=== PATIENT | female | born 1950 | race Caucasian/White ===

== ENCOUNTER 2020-04-13 11:49 | Outpatient (CLI) | payer MEDICARE, SELFPAY ==
--- NOTE | ~2020-04-13 | XR_ITS ---
EXAMINATION: XR knee RT 3V DATE: 04/13/2020 12:21 INDICATION: Right knee pain. TECHNIQUE: 3 views of right knee were obtained. COMPARISON: None. FINDINGS: Bone alignment is normal. No fracture. There is mild tricompartmental osteoarthritis. There is a small knee joint effusion. IMPRESSION: 1. Mild right knee osteoarthritis. 2. Small right knee joint effusion. Reviewed, dictated and finalized at location A.
== END 2020-04-13 11:50 | disposition home or self-care (01) ==
LOC: CHSIMG 11:54
PROVIDERS: PCP Family Medicine; Visit Provider Family Medicine
DX: M25.561 Pain in right knee (principal)
CPT/HCPCS: 73562

== ENCOUNTER 2020-11-15 10:53 | Outpatient (CLI) | payer MEDICARE, SELFPAY ==
[2020-11-15 12:03] LABS: SARS-CoV-2 Ag Positive (Negative)
== END 2020-11-15 10:54 | disposition home or self-care (01) ==
LOC: CHSLAB 10:55
PROVIDERS: PCP Family Medicine; Visit Provider Family Medicine
DX: U07.1 COVID-19 (principal)
CPT/HCPCS: 87426; C9803

== ENCOUNTER 2021-10-13 14:10 | Outpatient (CLI) | payer MEDICARE, SELFPAY ==
--- NOTE | 2021-10-13 14:50 | ECHO_ITS ---
Patient Info Name: Kelsie Chaidez Age: 71 years : 1950 Gender: Female Ht: 66 in Wt: 180 lbs BSA: 1.97 m2 HR: 73 bpm BP: 119 / 77 mmHg Exam Date: 10/13/2021 3:35 PM Exam Location: [facility] Patient Status: Outpatient Admit Date: 10/13/2021 Staff Ordering Physician: Patrick Gusman MD Study Lead: Anu Vale Attending Provider: Patrick Gusman MD Referring Physician: Uzma PAUL; Exam Type: CA echo doppler color flow Study Info Indications R01.1 - Cardiac murmur, unspecified Complete two-dimensional, color flow and Doppler transthoracic echocardiogram is performed. Summary 1. Complete two-dimensional, color flow and Doppler transthoracic echocardiogram is performed. 2. Left ventricular chamber dimension is normal. 3. Left ventricular systolic function is normal, estimated at 60-65%. 4. The left ventricular diastolic function is grade I diastolic dysfunction. 5. E/e' 5 is not elevated. 6. There is mild aortic valve sclerosis. 7. There is trace aortic valve regurgitation. Left Ventricle E/e' 5 is not elevated. Left ventricular chamber dimension is normal. Left ventricular systolic function is normal, estimated at 60-65%. The left ventricular diastolic function is grade I diastolic dysfunction. Right Ventricle Right ventricular systolic function is normal and with normal TAPSE 1.9 cm. Right ventricular chamber dimension is normal. Left Atria Left atrial chamber dimension is normal. Right Atria Right atrial chamber dimension is normal. Aortic Valve The aortic valve is trileaflet. There is mild aortic valve sclerosis. There is no aortic valve stenosis. There is trace aortic valve regurgitation. Pulmonic Valve There is no pulmonic regurgitation. Mitral Valve There is no mitral valve stenosis. There is no mitral valve regurgitation. Tricuspid Valve There is no tricuspid valve regurgitation. Pericardium/Pleural There is no pericardial effusion. Inferior Vena Cava Normal inferior vena cava with >50% collapse upon inspiration consistent with normal right atrial pressure, 5 mmHg. Aorta The aortic root size at the sinus of Valsalva is normal. Left Ventricular Outflow Tract Name Value Normal LVOT 2D LVOT Diameter 2.0 cm LVOT Doppler LVOT Peak Velocity 75 cm/s LVOT Peak Gradient 2 mmHg LVOT Mean Gradient 1 mmHg LVOT VTI 17 cm LVOT VTI/AV VTI Ratio 0.6 LVOT Stroke Volume 52 ml Mitral Valve Name Value Normal MV Doppler MV Decel [place] 232 cm/s2 MV PHT 64 ms MV Area (PHT) 3.5 cm2 4.0-5.0 MV Diastolic Function
== END 2021-10-13 14:11 | disposition home or self-care (01) ==
LOC: CHSIMG 14:13
PROVIDERS: PCP Family Medicine; Visit Provider Internal Medicine Cardiovascular Disease
DX: R42 Dizziness and giddiness (principal); R01.1 Cardiac murmur, unspecified
CPT/HCPCS: 93306

== ENCOUNTER 2022-05-30 12:36 | Outpatient (CLI) | payer MEDICARE, SELFPAY ==
[2022-05-30 13:41] LABS: Influenza A QL RT-PCR Negative (Negative); Influenza B QL RT-PCR Negative (Negative); SARS-CoV-2 RNA PCR Positive (Negative)
== END 2022-05-30 12:37 | disposition home or self-care (01) ==
LOC: CHSLAB 12:44
PROVIDERS: PCP Family Medicine; Visit Provider Family Medicine
DX: U07.1 COVID-19 (principal)
CPT/HCPCS: 87502; C9803; U0003; U0005

== ENCOUNTER 2023-10-09 01:36 | Day surgery (SDC) | payer MEDICARE, SELFPAY ==
[2023-09-25 12:00] VITALS: BMI 26.9
--- NOTE | 2023-10-07 10:56 | SUR.PREOP ---
Patient called regarding upcoming procedure. Reviewed preop instructions, appointment times, and procedure prep.
[2023-10-09 12:39] VITALS: BP 130/80; PULSE 113; RESP 16; TEMP 36.1; O2SAT 99
[2023-10-09] MEDS: LACTATED RINGERS 1,000 ML 150 ML IV CONT (12:46)
--- NOTE | 2023-10-09 12:54 | WPDANESEPPF ---
Anes - Initial Pre Proc Eval Procedure: Operation Date: 10/09/23 14:00 Proposed Procedures p Esophagogastroduodenoscopy & Colonoscopy - Vinicio King MD Date/Time: 10/09/23 12:54 Surgeon: Vinicio King MD Pre Op Diagnosis: other fecal abnormalities, anemia unspecified Patient Data Age: 73 Gender: F Height: 1.73 m Weight: 77 kg Last Vital Signs Temp 97.0 F L 10/09/23 12:39 Pulse 113 H 10/09/23 12:39 Resp 16 10/09/23 12:39 BP 130/80 10/09/23 12:39 Pulse Ox 99 10/09/23 12:39 O2 Del Method Room Air 10/09/23 12:39 Allergies Allergy/AdvReac Type Severity Reaction Status Date / Time Penicillins Allergy Unknown Unknown Verified 10/09/23 12:38 Home Medications Medication Instructions Recorded Confirmed Type amitriptyline 25 mg tablet 25 mg PO HS 09/25/23 10/09/23 History aspirin 81 mg capsule 81 mg PO DAILY 09/25/23 10/09/23 History docusate sodium 100 mg capsule 100 mg PO HS 09/25/23 10/09/23 History (Stool Softener) ramipril 2.5 mg capsule 2.5 mg PO DAILY 09/25/23 10/09/23 History rosuvastatin 40 mg tablet 40 mg PO DAILY 09/25/23 10/09/23 History venlafaxine 37.5 mg 37.5 mg PO DAILY 09/25/23 10/09/23 History capsule,extended release 24 hr vitamin B complex (B 1 tablet PO DAILY 09/25/23 10/09/23 History Complex-Vitamin B12 tablet) Patient hx anesthesia problems: none Family hx anesthesia problems: none Results Review: All pre-operative results and documents have been reviewed as part of the pre-operative evaluation. [facility] Family History Family History (Updated 07/02/19 @ 14:00 by DOCTOR UNKNOWN) Father Family history of malignant neoplasm of esophagus Social History Social History Smoking status: Never smoker Second hand tobacco smoke exposure: No Alcohol intake: current Alcohol use details: occasional wine Substance use: never Substance use type: does not use Living arrangements: with family Spiritual care concerns: No Anes - Eval Final PreProcedure Day of Procedure 10/09/23 12:54 Patient weight: normal Heart: regular rate and rhythm Lungs: clear to auscultation Airway: Mallampati scale class III Neurological: alert and oriented Last oral intake: >/= 8 hours ASA classification: III Emergent: no Anesthetic plan: proceed Anesthesia type and monitoring: general GIVS and standard monitoring Results Review: All pre-operative results and documents have been reviewed as part of the pre-operative evaluation. Informed Consent: The patient's anesthetic plan and its attendant risks and benefits were discussed with the patient/family/POA. Questions were solicited and answers provided to the satisfaction of the patient/family/POA.
--- NOTE | 2023-10-09 13:03 | PM.HPGS ---
History of Present Illness History of Present Illness Consent: Risks, benefits, and alternatives have been discussed and questions answered. Patient agrees to proceed with procedure. Chief complaint: other fecal abnormalities, anemia unspecified Narrative: Kelsie Chaidez is a 73 year old female with fatigue and recent blood work showed anemia, hgb ~ 9, denies overt gib, last colonoscopy 2006, never had egd Review of Systems Constitutional: Constitutional: Denies headache(s) and Denies weakness Eyes: Eyes: Denies blurry vision ENT: Reports Normal hearing present, Denies headache(s) and Denies neck pain Cardiovascular: Cardiovascular: Denies chest pain and Denies dyspnea Respiratory: Respiratory: Denies dyspnea Gastrointestinal: Gastrointestinal: Reports no additional gastrointestinal complaints Genitourinary: Genitourinary: Denies dysuria Musculoskeletal: Musculoskeletal: Denies neck pain Integumentary/Breasts: Skin/Breast: Denies dry skin Neurologic: Reports Normal hearing present, Denies headache(s) and Denies weakness Psychiatric: Psychiatric: Denies anxiety Endocrine: Endocrine: Denies change in body appearance Hematologic/Lymphatic: Hematologic/Lymphatic: Denies easy bleeding Allergic/Immunologic: Allergic/Immunologic: Denies urticaria PMFSH Past Medical History Medical History (Updated 10/09/23 @ 13:04 by Vinicio King MD) Anemia Family History Family History (Updated 07/02/19 @ 14:00 by DOCTOR UNKNOWN) Father Family history of malignant neoplasm of esophagus Social History Social History Smoking status: Never smoker Second hand tobacco smoke exposure: No Alcohol intake: current Alcohol use details: occasional wine Substance use: never Substance use type: does not use Living arrangements: with family Spiritual care concerns: No Meds Home Medications and Allergies Home Medications Medication Instructions Recorded Confirmed Type amitriptyline 25 mg tablet 25 mg PO HS 09/25/23 10/09/23 History aspirin 81 mg capsule 81 mg PO DAILY 09/25/23 10/09/23 History docusate sodium 100 mg capsule 100 mg PO HS 09/25/23 10/09/23 History (Stool Softener) ramipril 2.5 mg capsule 2.5 mg PO DAILY 09/25/23 10/09/23 History rosuvastatin 40 mg tablet 40 mg PO DAILY 09/25/23 10/09/23 History venlafaxine 37.5 mg 37.5 mg PO DAILY 09/25/23 10/09/23 History capsule,extended release 24 hr vitamin B complex (B 1 tablet PO DAILY 09/25/23 10/09/23 History Complex-Vitamin B12 tablet) Allergies Allergy/AdvReac Type Severity Reaction Status Date / Time Penicillins Allergy Unknown Unknown Verified 10/09/23 12:38 Vital Signs Vital Signs - 24 hr 10/09/23 12:39 Temperature 97.0 F L Pulse Rate 113 H Respiratory Rate 16 Blood Pressure 130/80 Pulse Oximetry 99 Oxygen Delivery Room Air Exam Const: General: comfortable and no acute distress HENMT: Face/Nose/Sinus: Normal nares present Eyes: General: appearance normal, both eyes and all related structures Neck: Neck: no JVD Resp: Auscultation: clear to auscultation bilaterally Cardio: Rate: regular rate Rhythm: regular rhythm GI: Inspection: non-distended GI Palp: Yes Soft to palpation Skin: General skin exam: normal color Neuro: General: gait normal Speech: normal speech Extrem: General: normal to inspection Psych: Mental Status: mental status grossly normal Assessment and Plan Assessment and plan (1) Anemia: Code(s): D64.9 - Anemia, unspecified Status: Acute Assessment and Plan: egd and colonoscopy to assess if gi blood loss
[2023-10-09] MEDS: BENZOCAINE (*SP) 60 ML SPRAY CAN (HURRICAINE) 1 SPRAY MUCOUS MEM (13:10)
--- NOTE | 2023-10-09 13:12 | SUR.OPER ---
EGD: START-1310 END-1315, COLONOSCOPY: START-1320, END- 1333
[2023-10-09 13:38] VITALS: BP 118/77; PULSE 85; RESP 16; O2SAT 97
[2023-10-09 13:48] VITALS: BP 122/74; PULSE 84; RESP 17; O2SAT 97
== END 2023-10-09 14:24 | disposition home or self-care (01) ==
PROVIDERS: PCP Family Medicine; Visit Provider Internal Medicine Gastroenterology
PROC: 0DJ08ZZ Inspection of Upper Intestinal Tract, Via Natural or Artificial Opening Endoscopic (ICD-10-PCS; CPT 43235; principal; 2023-10-09 14:00)
DX: R19.5 Other fecal abnormalities (principal); C18.2 Malignant neoplasm of ascending colon; K57.30 Diverticulosis of large intestine without perforation or abscess without bleeding; K64.8 Other hemorrhoids; K44.9 Diaphragmatic hernia without obstruction or gangrene; D64.9 Anemia, unspecified; Z79.82 Long term (current) use of aspirin; Z80.0 Family history of malignant neoplasm of digestive organs
CPT/HCPCS: 43239; 45331; 45335; 88305; J2704; J7120

== ENCOUNTER 2023-10-17 09:24 | Outpatient (CLI) | payer MEDICARE, SELFPAY ==
--- NOTE | ~2023-10-17 | CT_ITS ---
CT of the Abdomen and Pelvis: Indication: Other specified diseases of intestines Technique: 2.5 mm axial scans were obtained through the abdomen and pelvis following intravenous adm inistration of 100 cc of Omnipaque 350. Dose reduction technique was used on this scan by utilizing a utomated exposure control and iterative reconstruction technique. The dose-length product (DLP) was 6 96.41 mGy-cm. Findings: Scans through the lung bases are unremarkable. The liver, spleen, pancreas, gallbladder, adrenals and kidneys are within normal limits. No evidence of aortic aneurysm. No lymphadenopathy. There is an ascending colonic mass measuring approximately 7.8 x 5.5 cm (axial image 81 for example). No forrest bowel obstruction evident. There are small, shotty pericolonic lymph nodes, nonspecific. Images through the pelvis were performed. Urinary bladder unremarkable. No adnexal mass seen. No asci anish. No ascites. Impression: Ascending colonic mass, as detailed above, most consistent with colonic adenocarcinoma. Small, shotty pericolonic lymph nodes in this region are indeterminate for early local ar metastat ic disease. No other evidence for metastatic disease. Reviewed, dictated and finalized at location . STANT DISTRICT ATTORNEY Impression: Ascending colonic mass, as detailed above, most consistent with colonic adenoca rcinoma. Small, shotty pericolonic lymph nodes in this region are indeterminate for susi y local ar metastatic disease. No other evidence for metastatic disease.
[2023-10-17 08:50] LABS: Estimated Glomerular Filt Rate > 60
[2023-10-17 10:58] LABS: Hematocrit 28.8 % (37.0-47.0); Hemoglobin 8.4 g/dL (12.0-15.0); Mean Corpuscular HGB Conc 29.2 g/dl (32-36); Mean Corpuscular Hemoglobin 24.1 pg (26-34); Mean Corpuscular Volume 82.5 fl (80-100); Mean Platelet Volume 9.9 fl (7.4-10.4); Platelet Count Result 413 k/mm3 (150-375); Red Blood Count 3.49 M/mm3 (4.2-5.4); Red Cell Distribution Width 17.9 % (11.5-14.5)
[2023-10-17 11:34] LABS: Alanine Aminotransferase 11 U/L (6-35); Albumin Level 3.8 g/dL (3.5-5.1); Alkaline Phosphatase 83 U/L (38-126); Anion Gap 10 mmol/L (8-16); Aspartate Amino Transferase 22 U/L (14-36); Bilirubin,Total 0.3 mg/dL (0.2-1.3); Blood Urea Nitrogen 12 mg/dL (7-17); Carbon Dioxide 24 mmol/L (22-30); Chloride 103 mmol/L (98-107); Estimated Glomerular Filt Rate > 60; Glucose 101 mg/dL (65-110); Potassium 3.9 mmol/L (3.4-5.0); Sodium 137 mmol/L (137-145)
[2023-10-17 11:59] LABS: Carcinoembryonic Antigen 9.5 ng/mL (0.0-3.0)
== END 2023-10-17 09:25 | disposition home or self-care (01) ==
PROVIDERS: PCP Family Medicine; Visit Provider Internal Medicine Gastroenterology
DX: K63.89 Other specified diseases of intestine (principal); D64.9 Anemia, unspecified; C18.9 Malignant neoplasm of colon, unspecified
CPT/HCPCS: 74177; 80053; 82378; 85027; Q9967

== ENCOUNTER 2023-11-25 13:08 | Emergency (ER) | payer MEDICARE, SELFPAY ==
[2023-11-25] VITALS (38 sets, daily range): BP systolic 113–137; BP diastolic 66–105; PULSE 70–100; RESP 13–20; TEMP 37; O2SAT 94–99
--- NOTE | ~2023-11-25 | XR_ITS ---
XR chest 1V portable DATE: 11/25/2023 13:52 INDICATION: Chest pain radiating to right arm TECHNIQUE: Portable upright AP chest on 11/25/2023 at 1355 hours COMPARISON: 06/06/2018 AP chest FINDINGS: Heart size is normal. Probable coronary stent. Mild aortic unfolding. No hilar or mediastin al enlargement. Mild bilateral apical capping. No pulmonary infiltrate or consolidation, pleural effusion or pulmonar y vascular congestion or pneumothorax is detected. IMPRESSION: No active cardiopulmonary disease Reviewed, dictated and finalized at location B. Y EQUIPMENT OPERATOR
--- NOTE | ~2023-11-25 | CT_ITS ---
EXAMINATION: CTA chest abdomen pelvis DATE: 11/25/2023 15:31 INDICATION: Right shoulder and chest pain. Exploratory laparotomy and removal of colon tumor one week ago TECHNIQUE: Computed tomography angiography (CTA) of the chest, abdomen and pelvis was performed with 100 mL Omnipaque-350 intravenous contrast timed to evaluate the pulmonary arteries. Coronal maximum i ntensity projection 3D-reconstructions were created by the technologist. Automated exposure control a nd iterative reconstruction technique were employed. Exam dose: 953.45 mGy-cm total exam DLP. COMPARISON: 10/17/2023 CT abdomen pelvis 11/25/2023 portable AP chest FINDINGS: No evidence of pulmonary embolism. No thoracic aortic aneurysm or dissection. Coronary artery stent is suggested. No pericardial or pleural effusion. No hilar or mediastinal mass lesion or lymphadenopathy. There is patchy groundglass density throughout the lungs suggesting small airways disease or pneumoni tis. Multifocal discoid atelectasis or scarring at the dependent left lower lobe. Bilateral apical scarring. 3 mm distended but no gallbladder wall thickening or pericholecystic fluid or fat stranding is noted. No bile duct or pancreatic duct dilatation. No hepatic, splenic, pancreatic, and adrenal space-occupying mass lesion. No right renal mass lesion. 12 mm exophytic probable left renal cyst, stable since 10/17/2023. No urinary tract calculus or hydro ureteronephrosis. The urinary bladder is unremarkable. Retroverted uterus. Adnexal areas are unremark able. No abdominal aortic aneurysm. No intraperitoneal or retroperitoneal or pelvic mass lesion or adenopat hy or ascites. Partial right colectomy. There is nondilated fluid containing small bowel with numerous small bowel a ir-fluid levels, in addition to fluid levels in the proximal colon, likely postoperative adynamic ile us. No suspicious osteolytic or osteoblastic lesions. IMPRESSION: Probable postoperative adynamic ileus following partial right colon resection, including fluid containing small bowel with air-fluid levels Probable 12 mm left renal cyst Reviewed, dictated and finalized at Location A. Reviewed, dictated and finalized at location B. ILL OR TIMBER YARD WORKER IMPRESSION: Probable postoperative adynamic ileus following partial right colo n resection, including fluid containing small bowel with air-fluid levels Probable 12 mm left renal cyst
--- NOTE | 2023-11-25 13:09 | ECG_ITS ---
Measurements Intervals [place] Rate: 73 P: -39 WV: 113 QRS: -25 QRSD: 107 T: 26 QT: 445 QTc: 492 Interpretive Statements SINUS RHYTHM WITH SHORT WV INTERVAL VENTRICULAR PREMATURE COMPLEX LOW QRS VOLTAGE IN PRECORDIAL LEADS BORDERLINE R WAVE PROGRESSION, ANTERIOR LEADS SUBTLE ANTEROLATERAL ST ELEVATION- CONSIDER ACUTE INJURY HIGH LATERAL ST ELEVATION MYOCARDIAL INJURY- ACUTE, WITH RECIPROCAL ST DEPRESSION IN INFERIOR LEADS ABNORMAL ECG NO PREVIOUS ECG AVAILABLE FOR COMPARISON Electronically Signed On 11-25-2023 13:32:21 BATTERY LOADER by Phil Caldwell D.O.
--- NOTE | 2023-11-25 13:14 | ED.GENADULT ---
HPI - General Adult General Chief complaint: Chest Pain Stated complaint: CHEST PAIN Source: patient Mode of arrival: ambulatory Limitations: no limitations History of Present Illness HPI narrative: 73-year-old female with a history of anxiety, dyslipidemia, anemia, CAD, negative stress test, ascending colon mass status post exploratory laparotomy 1 week ago presents to the ER with 1.5 hour -- right shoulder and right chest wall pain which is continuous -- had nausea without any vomiting. -- Shortness of breath Onset (ago): hour(s) (1.5 hrs ago) Location: chest Radiation: non-radiation Quality: aching Pain Consistency: constant Relieving factors: none Exacerbating factors: none Associated symptoms: denies other symptoms Treatments prior to arrival: other ( patient took an oxycodone at 9:00 a.m.) Related Data Home Medications Medication Instructions Recorded Confirmed amitriptyline 25 mg tablet 25 mg PO HS 09/25/23 11/25/23 aspirin 81 mg capsule 81 mg PO DAILY 09/25/23 11/25/23 docusate sodium 100 mg capsule 100 mg PO HS 09/25/23 11/25/23 (Stool Softener) ramipril 2.5 mg capsule 2.5 mg PO DAILY 09/25/23 11/25/23 rosuvastatin 40 mg tablet 40 mg PO DAILY 09/25/23 11/25/23 venlafaxine 37.5 mg 37.5 mg PO DAILY 09/25/23 11/25/23 capsule,extended release 24 hr vitamin B complex (B 1 tablet PO DAILY 09/25/23 11/25/23 Complex-Vitamin B12 tablet) ascorbic acid (vitamin C) 500 mg 500 mg PO DAILY 11/25/23 11/25/23 tablet ferrous sulfate 325 mg (65 mg 325 mg PO DAILY 11/25/23 11/25/23 iron) tablet oxycodone 5 mg tablet 5 mg PO Q4H 11/25/23 11/25/23 Allergies Allergy/AdvReac Type Severity Reaction Status Date / Time Penicillins Allergy Unknown Unknown Verified 11/25/23 13:15 Review of Systems Review of Systems: All systems reviewed & are unremarkable except as noted in HPI and below Constitutional: Constitutional: Reports as per HPI and Reports no additional constitutional complaints Eyes: Eyes: Reports as per HPI and Reports no additional eye complaints ENT: Reports system reviewed and no additional complaints, except as documented and Reports as per HPI Cardiovascular: Cardiovascular: Reports as per HPI, Reports no additional cardiovascular complaints and Reports chest pain Respiratory: Respiratory: Reports as per HPI and Reports no additional respiratory complaints Gastrointestinal: Gastrointestinal: Reports as per HPI, Reports no additional gastrointestinal complaints and Reports nausea Genitourinary: Genitourinary: Reports no additional female genitourinary complaints and Reports as per HPI Musculoskeletal: Musculoskeletal: Reports no additional musculoskeletal complaints and Reports as per HPI Integumentary/Breasts: Skin/Breast: Reports system reviewed and no additional complaints, except as docu and Reports as per HPI Neurologic: Reports system reviewed and no additional complaints, except as documented and Reports as per HPI Psychiatric: Psychiatric: Reports no additional psychiatric complaints and Reports as per HPI Endocrine: Endocrine: Reports no additional endocrine complaints and Reports as per HPI Hematologic/Lymphatic: Hematologic/Lymphatic: Reports no additional hematologic/lymphatic complaints and Reports as per HPI Allergic/Immunologic: Allergic/Immunologic: Reports no additional allergic/immunologic complaints and Reports as per HPI [facility] Past Medical History Medical History Anemia Colon cancer Mass of colon Family History Family History Father Family history of malignant neoplasm of esophagus Social History Social History Smoking status: Never smoker Second hand tobacco smoke exposure: No Alcohol intake: current Alcohol use details: occasional wine Substance use: never Substance use type: does not us
[2023-11-25] MEDS: MORPHINE SULFATE (*CRX) 2 MG/ML INJ IV PUSH ×2 (13:37→16:13)
[2023-11-25] MEDS: ONDANSETRON INJ 4 MG/2 ML VIAL IV PUSH (13:39)
[2023-11-25 14:09] LABS: Prothrombin Time 10.6 Seconds (9.50-12.10)
[2023-11-25 14:11] LABS: D Dimer 3.66 mg/L (0.19-0.50)
[2023-11-25 14:14] LABS: Lactic Acid Reflex 2.4 mmol/L (0.4-2.0)
[2023-11-25 14:17] LABS: Alanine Aminotransferase 18 U/L (14-59); Albumin Level 3.3 g/dL (3.4-5.0); Alkaline Phosphatase 64 U/L (46-116); Anion Gap 14 mmol/L (8-16); Aspartate Amino Transferase 13 U/L (15-37); Bilirubin,Total 0.4 mg/dL (0.00-1.00); Blood Urea Nitrogen 13 mg/dL (7-18); Calcium 8.8 mg/dL (8.5-10.1); Carbon Dioxide 24 mmol/L (21-32); Chloride 96 mmol/L (98-108); Estimated CRCL calculation 57 ml/min; Estimated Glomerular Filt Rate > 60; Glucose 144 mg/dL (70-99); NT Pro B Type Natriuretic Pept 27 pg/mL (0-125); Osmolality Calculated 281 mOsm/kg (285-295); Potassium 3.6 mmol/L (3.5-5.1); Sodium 134 mmol/L (136-145); Total Protein 7.3 g/dL (6.4-8.2)
[2023-11-25 14:36] LABS: Troponin I 84.3 ng/L (0.00-60.4)
[2023-11-25 16:04] LABS: Basophils Absolute Auto 0.02 K/mm3 (0.00-0.10); Basophils Percent Auto 0.2 % (0.0-1.0); Eosinophils Absolute Auto 0.23 K/mm3 (0.02-0.50); Hematocrit 30.5 % (35.0-42.0); Hemoglobin 8.9 g/dL (11.7-13.8); Immature Granulocyte Absolute 0.22 K/mm3 (0.00-0.00); Immature Granulocyte Percent A 1.9 % (0.0-0.0); Lymphocytes Absolute Auto 1.83 K/mm3 (1.10-4.50); Lymphocytes Percent Auto 16.1 % (18.0-42.0); Mean Corpuscular HGB Conc 29.2 g/dL (32.0-36.0); Mean Corpuscular Hemoglobin 23.9 pg (27.0-31.0); Mean Platelet Volume 9.2 fl (9.2-11.8); Monocytes Absolute Auto 0.57 K/mm3 (0.10-0.90); Neutrophils Absolute Auto 8.5 K/mm3 (1.7-7.2); Neutrophils Percent Auto 74.8 % (50.0-70.0); Platelet Count Result 616 K/mm3 (150-420); Red Blood Count 3.72 M/mm3 (4.20-5.40); Red Cell Distribution Width 20.6 % (11.6-14.4); White Blood Count 11.3 K/mm3 (4.8-10.8)
[2023-11-25 16:48] LABS: Reflex Lactic Acid Yes or No Add Lactic
[2023-11-25 17:07] LABS: Lactic Acid 1.2 mmol/L (0.4-2.0)
[2023-11-25 17:09] LABS: Troponin I 2089.1 ng/L (0.00-60.4)
--- NOTE | 2023-11-25 17:14 | ECG_ITS ---
Measurements Intervals [place] Rate: 85 P: 62 OR: 160 QRS: -85 QRSD: 101 T: 30 QT: 386 QTc: 462 Interpretive Statements SINUS RHYTHM LOW QRS VOLTAGE IN PRECORDIAL LEADS LEFT ANTERIOR FASCICULAR BLOCK ANTEROSEPTAL INFARCT, AGE INDETERMINATE HIGH LATERAL ST ELEVATION- CONSIDER ACUTE INFARCT ABNORMAL ECG COMPARED TO ECG 11/25/2023 13:13:36 LEFT ANTERIOR FASCICULAR BLOCK NOW PRESENT Electronically Signed On 11-25-2023 19:36:41 DIESEL TRACTOR ENGINE MECHANIC by Phil Caldwell D.O.
[2023-11-25] MEDS: ASPIRIN 81 MG CHEWABLE TABLET 324 MG PO (17:41)
[2023-11-25] MEDS: METOPROLOL TARTRATE 50 MG TAB PO (17:41)
[2023-11-25] MEDS: HEPARIN SODIUM 5,000 UNITS/ML VIAL 4500 UNITS IV PUSH (17:43)
[2023-11-25] MEDS: NITROGLYCERIN SL 0.4 MG TABLET SUBLINGUAL (17:48)
[2023-11-25] MEDS: HEPARIN SOD/D5W 100 UNITS/ML 25,000 UNITS/250 ML BAG 9 UNITS IV CONT (17:48)
== END 2023-11-25 17:50 | disposition short-term general hospital (02) ==
PROVIDERS: Emergency Provider Internal Medicine Critical Care Medicine
DX: I21.4 Non-ST elevation (NSTEMI) myocardial infarction (principal); K91.89 Other postprocedural complications and disorders of digestive system; K56.7 Ileus, unspecified; I25.10 Atherosclerotic heart disease of native coronary artery without angina pectoris; Z79.899 Other long term (current) drug therapy; Z79.82 Long term (current) use of aspirin; Z79.891 Long term (current) use of opiate analgesic
CPT/HCPCS: 36415; 71045; 71275; 74174; 80053; 83605; 83880; 84484; 85025; 85380; 85610; 85730; 93005; 96374; 96375; 96376; 99285; A9270; J1644; J2270; J2405; Q9967

== ENCOUNTER 2024-05-06 11:00 | Outpatient (RCR) | payer MEDICARE, SELFPAY | END 2024-05-06 14:25 | disposition home or self-care (01) | PROVIDERS: PCP Family Medicine | DX: I25.2 Old myocardial infarction (principal) | CPT/HCPCS: 93798 ==

== ENCOUNTER 2025-04-14 12:16 | Outpatient (CLI) | payer MEDICARE, SELFPAY ==
--- NOTE | ~2025-04-14 | MM_ITS ---
EXAMINATION: MM screening [facility] BI w sofi HISTORY: Screening TECHNIQUE: Craniocaudal and mediolateral oblique 3-D tomosynthesis images were obtained and synthetic 2-D images were generated. CAD analysis was submitted and interpreted. COMPARISON: 08/21/2017 through 07/15/2012 BREAST PARENCHYMAL COMPOSITION: The breasts are heterogeneously dense, which may obscure small masses . FINDINGS: There is no evidence of suspicious mass, calcification, or architectural distortion to sugg est malignancy in either breast. There has been no suspicious interval change. IMPRESSION: 1. No mammographic evidence of malignancy. 2. Recommend routine screening mammography in one year. BI-RADS Category 1: Negative Reviewed, dictated and finalized at location B.
--- NOTE | ~2025-04-14 | DEXA_ITS ---
Bone Density Report Name: KATHE GOEL Age: 74 Sex: Female Ethnicity: White Date of : 1950 Indication: postmenopausal; screening for osteoporosis; height loss; cancer; Referring Provider: JOSHUA, ROOPA Thompson Study: Bone densitometry was performed. Exam Date: April 14, 2025 Accession number: [id number] Bone Density: Region BMD T-score Z-score Classification AP Spine(L1-L4) 0.810 -2.2 0.2 Osteopenia Femoral Neck (Left) 0.590 -2.3 -0.3 Osteopenia Total Hip (Left) 0.861 -0.7 1.1 Normal Femoral Neck (Right) 0.611 -2.1 -0.1 Osteopenia Total Hip (Right) 0.876 -0.5 1.2 Normal Femoral Neck Mean 0.600 -2.2 -0.2 Osteopenia Total Hip Mean 0.868 -0.6 1.2 Normal World Health Organization criteria for BMD impression classify patients as: Normal (T-score at or above -1.0), Osteopenia (T-score between -1.0 and -2.5), or Osteoporosis (T-score at or below -2.5). 10-year Fracture Risk(1): Major Osteoporotic Fracture 15% Hip Fracture 4.2% Reported Risk Factors: [place] (), Neck BMD=0.590, BMI=25.4 (1) FRAX(R) Version 3.08. Fracture probability calculated for an untreated patient. Fracture probability may be lower if the patient has received treatment. Clinical Information Provided by Patient: Has the following medical conditions: Cancer Patient maximum height was 69 Menopause Age: 50 No regular weight bearing exercise Drinks caffeinated beverages Onset of menses at age 12 Number of children 2 Impression: The patient has low bone mass, based on the Left Femoral Neck T-score. Discussion: BONE DENSITY IS LOW AT ONE OR MORE SKELETAL SITES. This patient's lowest T-score is low at one or more skeletal sites. It meets the World Health Organization's (WHO) criteria for ?low bone mass? (T-score between -1.0 and -2.5). The patient's 10-year risk of fracture as calculated by FRAX is less than the threshold where pharmacological therapy is recommended by the National Osteoporosis Foundation (NOF). However, all treatment decisions require clinical judgment and consideration of individual patient factors, including patient preferences, comorbidities, previous drug use, risk factors not captured in the FRAX model (e.g., frailty, falls, vitamin D deficiency, increased bone turnover, interval significant decline in bone density) and possible under or overestimation of fracture risk by FRAX. The patient should follow a healthful lifestyle (good nutrition with adequate calcium and vitamin D, and appropriate weight-bearing exercise). Follow-Up: Consider repeating this study in 2 to 3 years to reassess this patient's status, or sooner if there is some new clinical indication. Reported by: VANESSA on 04/14/2025 12:40:00 PM. Reviewed, dictated and finalized at location A.
--- OUTSIDE RECORDS SUMMARY | 2025-04-14 12:19 | XMS_ITS ---
Author Organization [facility] [address] Address [address] [place] [address] Care Team Providers Care Android Ios Developer Name Role Phone Isiah Irving MD Primary Care Provide r Pancho Hart MD Unavailable [phone] Jaci Hodge MD Unavailable [phone] Active Problems Problem Noted Date Diagnosed Date Screening for malignant neoplasm of colon 2024 ACS (acute coronary syndrome) 11/25/2023 NSTEMI (non-ST elevated myocardial infarction) 0 11/25/2023 Severe protein-calorie malnutrition 11/19/2023 Malignant neoplasm of ascending colon 11/18/2023 Malignant neoplasm of colon 11/13/2023 Other specified anemias 10/11/2023 Mixed hyperlipidemia 02/23/2022 Chronic fatigue 03/01/2021 History of 2019 novel coronavirus disease (COVID -19) 03/01/2021 Other insomnia 03/01/2021 H/O acute myocardial infarction 02/16/2020 Coronary artery disease invo lving [place] coronary artery of [place] heart 11/09/2019 S/P coronary artery stent placement 11/09/2019 Benign hypertensive heart disease without heart failure 04/22/2017 Chest pain on exertion 03/12/2017 Overview (04/05/2017): Exertional chest pain Dyspnea on exertion 03/12/2017 Overview (04/05/2017): BUI (dyspnea on exertion) Ventricular premature beats 03/12/2017 Overview (04/05/2017): PVC's (premature ventricular contractions) Benign hypertension 03/12/2017 Overview (04/05/2017): HTN (hypertension), benign Current Treatment and Therapy Plans No current plan information found. Past Treatment and Therapy Plans No past plan information found. Lifetime Dose Tracking * Chemical Lifetime Dose Automatic Entry Manual Entr y Air kerma at the reference point (Ka,r) 1,089 mGy 0 mGy 1,089 mGy DLP 1,589 mGycm 1,589 mGycm 0 mGycm Resolved Problems Problem Noted Date Diagnosed Date Resolved Date Dyslipidemia 03/12/2017 02/23/2022 Overview (04/05/2017): Dyslipidemia
--- OUTSIDE RECORDS SUMMARY | 2025-04-14 12:19 | XMS_ITS | Clinical Summary ---
Author Organization [facility] [address] Address [address] [place] [address] Care Team Providers Care Correctional Probation Officer Name Role Phone Isiah Irving MD Primary Care Provide r Pancho Hart MD Unavailable [phone] Jaci Hodge MD Unavailable [phone] Allergies Active Allergy Reactions Criticality Noted Date Comments Penicillin Unknown High Medications cyanocobalamin (vitamin B-12) 1,000 mcg tablet take 1 by Oral route every day 0 0 7 Active coenzyme Q10 10 mg capsuleIndicatio ns:heart health Take 20 capsules (200 mg total) by mouth inspector open die before breakfast Active venlafaxine XR (EFFEXOR-XR) 37.5 mg 24 hr capsuleIndicatio ns:Generalized Anxiety Disorder Take 1 capsule (37.5 mg total) by mouth inspector open die before breakfast Active docusate sodium (DOK) 100 mg tabletIndication s:constipation Take 1 tablet (100 mg total) by mouth nightly Active nitroglycerin (NITROSTAT) 0.[address] 1 tablet (0.4 mg total) under the tongue every 5 (five) minutes as needed for chest pain 30 tablet 3 0 Active prednisoLONE acetate (PRED FORTE) 1 % ophthalmic suspensionIndica tions:Severe Ocular Inflammation Administer 1 drop into both eyes every other day 0 Active amitriptyline (ELAVIL) 25 mg tabletIndication s:Insomnia Take 0.5 tablets (12.5 mg total) by mouth nightly 1 Active ferrous sulfate 325 mg (65 mg of elemental iron) tabletIndication s:Iron Deficiency Anemia Take 1 tablet (325 mg total) by mouth daily with breakfast 3 Active ascorbic acid 500 mg tablet,chewableI ndications:takes with iron Take 1 tablet/chew tab (500 mg total) by mouth inspector open die before breakfast Active guaifenesin/dext romethorphan (ROBITUSSIN COUGH-CHEST PRISCILLA DM ORAL)Indications :cough Take 5 mL by mouth daily as needed (cough) Active polyethylene glycol (MIRALAX) 17 gram/dose bulk powder Take 17 g by mouth daily as needed (constipation) 510 g 4 Active oxyCODONE (ROXICODONE) 5 mg immediate release tabletIndication s:Pain Take 1 tablet (5 mg total) by mouth every 4 (four) hours as needed for pain 12 tablet 4 Active Additional Information Patient not taking.Reported on 02/18/2025 clotrimazole 1 % cream 5 Active Myrbetriq 25 mg tablet extended release 24 hr TAKE 1 TABLET (25 MG) BY MOUTH EVERY DAY SWALLOWING WHOLE WITH WATER . DO NOT CRUSH, CHEW, DIVIDE 5 Active aspirin 81 mg chewable tabletIndication s:acute myocardial infarction Take 1 tablet (81 mg total) by mouth daily 90 tablet 3 5 03/12/20 26 Active ticagrelor (Brilinta) 90 mg tablet Take 1 tablet (90 mg total) by mouth 2 (two) times a day 180 tablet 3 5 03/12/20 26 Active empagliflozin (JARDIANCE) 10 mg tabletIndication s:Heart Failure Take 0.5 tablets (5 mg total) by mouth daily 45 tablet 3 5 03/12/20 26 Active losartan (COZAAR) 25 mg tablet Take 0.5 tablets (12.5 mg total) by mouth nightly 45 tablet 3 5 03/12/20 26 Active metoprolol XL (TOPROL-XL) 25 mg extended release tablet Take 1 tablet (25 mg total) by mouth daily 90 tablet 3 5 Active rosuvastatin (CRESTOR) 40 mg tabletIndication s:hyperlipidemia Take 1 tablet (40 mg total) by mouth inspector open die before breakfast 90 tablet 3 5 03/12/20 26 Active spironolactone (ALDACTONE) 25 mg tablet Take 1 tablet (25 mg total) by mouth daily 90 tablet 3 5 03/12/20 26 Active Active Problems Problem Noted Date Diagnosed Date [...] infarction 02/16/2020 Coronary artery disease invo lving [place] coronary artery of [place] heart 11/09/2019 S/P coronary artery stent placement 11/09/2019 Benign hypertensive heart disease without heart failure 04/22/2017 Chest pain on exertion 03/12/2017 Overview (04/05/2017): Exertional chest pain Dyspnea on exertion 03/12/2017 Overview (04/05/2017): BUI (dyspnea on exertion) Ventricular premature beats 03/12/2017 Overview (04/05/2017): PVC's (premature ventricular contractions) Benign hypertension 03/12/2017 Overview (04/05/2017): HTN (hypertension), benign Resolved Problems Problem Noted Date Diagnosed Date Resolved Date Dyslipidemia 03/12/2017 02/23/2022 Overview (04/05/2017): Dyslipidemia Encounters Date Type Department Care Team Description 03/12/2025 Telephone [facility] Cardiology [address] 8th [place] [address] [place] [address] Yaritza Peter 03/05/2025 Telephone [facility] Surgery [address] [facility] [address] [place] [phone] Chanelle Echols PA 02/22/2025 10:15 AM CDT - 02/22/2025 11:59 PM CDT Hospital Encounter [facility] Imaging [address] [address] Pancho Hart MD Malignant neoplasm of ascending colon (HCC) Discharge Disposition: Discharge to home or self care 02/22/2025 9:05 AM CDT Anesthesia Event [facility] Endoscopy [address], [place] [address] Alta Desai MD 02/22/2025 9:00 AM CDT - 02/22/2025 9:45 AM CDT Surgery [facility] Endoscopy [address] [place] [address] Pancho Hart MD COLONOSCOPY 02/22/2025 7:27 AM CDT - 02/22/2025 10:13 AM CDT Hospital Encounter [facility] Endoscopy [address] [place] [address] Pancho Hart MD Discharge Disposition: Discharge to home or self care 02/18/2025 Telephone [facility] Surgery [address] [place] [address] [address] [place] [phone] Natalya Waller RMA confirm colonoscopy 02/02/2025 Telephone [facility] Cardiology [address] 8th [place] [address] [place] [phone] Jaci Hodge MD 02/02/2025 Telephone [facility] Surgery [address] [place] [address] Medical [address] [place] [phone] Viviane Strauss RN 02/02/2025 Telephone [facility] Transplant Heart [address] [phone] [place] [address] Heather Mercedes from Last 3 Months Surgical History Surgery Date Site/Laterality Comments APPENDECTOMY TUBAL LIGATION CATARACT EXTRACTION, BILATERAL CORNEAL TRANSPLANT Bilateral CORONARY ANGIOPLASTY WITH STENT PLACEMENT 05/11/2018 - 06/10/2018 CATARACT EXTRACTION CORNEAL TRANSPLANT COLON SURGERY 11/18/2023 Laparoscopic right hemicolectomy with stapled anastomosis between the ileum and transverse colon Medical History Medical History Date Comments Coronary artery disease Myocardial infarction (HCC) 06/06/2018 Arthritis Covid-19 HTN (hypertension) HLD (hyperlipidemia) GERD (gastroesophageal reflux disease) Colon cancer (HCC) ACS (acute coronary syndrome) (HCC) 11/25/2023 Family History Medical History Relation Name Comments Heart disease Daughter Cancer Father Cancer, unknown ; Cause of : Cancer, unknown Heart attack Mother Heart disease Mother Other Mother Heart Condition ; Cause of : Heart Condition Anesthesia problems Neg Hx Relation Name Status Comments Daughter Alive 3 cardiac stent s Father (Age 75) Mother (Age 89) Social History Tobacco Use Types Packs/Day Years Used Date Smoking Tobacco: Never Passive Smoke Exposure: Past Smokeless Tobacco: Never Tobacco Cessation:Counseling Given: Not Answered Alcohol Use Standard Drinks/Week Comments Yes 0 (1 standard drink = 0.6 oz pur e alcohol) [facility] Utilities Answer Date Recorded In the past 12 months has [employer], gas, oil, or water [employer] threatened to shut off services in your home? No 12/02/2023 Social Connection and Isolat ion Panel [NHANES] Answer Date Recorded In a typical week, how many times do you talk on the phone with family, friends, or neighbors? More than three times a week 12/02/2023 How often do you get togethe r with friends or relatives? More than three times a week 12/02/2023 How often do you attend chur ch or anglican services? More than 4 times per year 12/02/2023 Do you belong to any clubs o r organizations such as sikhism groups, unions, fraternal or athletic groups, or school groups? No 12/02/2023 How often do you attend meet ings of the clubs or organizations you belong to? Never 12/02/2023 Are you , , di vorced, , never , or living with a partner? 12/02/2023 AUDIT-C Answer Date Recorded Q1: How often do you have a drink containing alcohol? Monthly or less 02/22/2025 Q2: How many drinks containi ng alcohol do you have on a typical day when you are drinking? Patient does not drink Q3: How often do you have si x or more drinks on one occasion? Never 02/22/2025 Overall Financial Resource Strain (CARDIA) Answe r Date Recorded How hard is it for you to pa y for the very basics like food, housing, medical care, and heating? Not hard at all 12/02/2023 PHQ-2 Answer Date Recorded PHQ-2 Total Score 1 11/28/2023 Hunger Vital Sign Answer Date Recorded Within the past 12 months, y ou worried that your food would run out before you got the money to buy more. Never true 12/02/19 24 Within the past 12 months, t he food you bought just didn't last and you didn't have money to get more. Never true 12/02/2023 PRAPARE - Transportation Answer Date Re corded In the past 12 months, has l ack of transportation kept you from medical appointments or from getting medications? No 11/12 In the past 12 months, has l ack of transportation kept you from meetings, work, or from getting things needed for daily living? No 12/02/2023 Housing Stability Vital Sign Answer Junito e Recorded In the last 12 months, was t here a time when you were not able to pay the mortgage or rent on time? No 12/02/2023 In the last 12 months, how many places have you lived? 1 12/02/2023 In the last 12 months, was t here a time when you did not have a steady place to sleep or slept in a senior living (including now)? No 12/02/2023 Personal Safety Answer Date Recorded Have you ever been in or are you currently in a harmful physical or emotional relationship or is someone making you feel afraid or unsafe? Denies 02/22/2025 Comments No Sex and Gender Information Value Date Recorded Sex Assigned at Not on file Legal Sex Female 1:02 PM [employer] Gender Identity Not on file Sexual Orientation Not on file Obstetrics History Last Filed Vital Signs Vital Sign Reading Time Taken Comments Blood Pressure 111/71 02/22/2025 10:05 AM CDT Pulse 72 02/22/2025 10:05 AM CDT Temperature 36.2 C (97.2 F) 02/22/2025 9:45 AM CDT Respiratory Rate 28 02/22/2025 10:05 AM CDT Oxygen Saturation 97% 02/22/2025 10:05 AM CDT Inhaled Oxygen Concentration - - Weight 72.6 kg (160 lb) 02/22/2025 8:04 AM CDT Height 175.3 cm (5' 9) 02/22/2025 8:04 AM CDT Body Mass Index 23.63 02/22/2025 8:04 AM CDT Plan of Treatment Health Maintenance Due Date Last Done Comments Breast Cancer Screening-Mammogram 1950 Hepatitis C Screening 1950 Osteoporosis Screening-Bone Density Scan 1950 DTaP/Tdap/Td Vaccine (1 - Tdap) 1961 Hepatitis B Screening 1968 Zoster Vaccine (1 of 2) 2000 Well Visit 65+ 2015 Pneumococcal vaccine 65+ (2 of 2 - PPSV23) 11/25/2017 09/30/2017 Depression Screening 11/25/2024 11/25/2023 Influenza Vaccine (Season Ended) 2025 08/17/20 19, 08/08/2018 Fall Risk Assessment 02/22/2026 02/22/2025 Colon Cancer Screening-Colonoscopy 02/22/20352024 Colon Cancer Screening-CT Colonography Discontinued Colon Cancer Screening-DNA Stool Discontinued 02/23/20 Colon Cancer Screening-FIT Discontinued 02/22/2025 Colon Cancer Screening-Sigmoidoscopy Discontinued 02/09 Medical Devices Implanted Type Area Umbrella Tipper Machine Device Identifier Shelf Expiration Date Model / Serial / Lot Heart Stent Implanted:Qty : 4 Stent Heart [employer] Card Vasc Surgery 3.5 X 22mm Harman Breathitt Rx Coronary Stent [id number] - [id number] - [id number] Implanted:Qty : 1 on 11/26/2023 by Raffy Sanz MD at [facility] Stent Left: Anterior Descending Cornary Artery Med[employer]onic Card Vasc Surgery 09/11/2026 [id number] / [id number] / [id number] Procedures Procedure Name Priority Date/Time Associated Diagnosis Comments CT CHEST ABDOMEN PELVIS W CONTRAST Schedule Routine, Read Routine (OP Routine) 02/22/2025 10:24 AM CDT Malignant neoplasm of ascending colon (HCC) COLONOSCOPY 02/22/2025 9:05 AM CDT Screening for malignant neoplasm of colon COLONOSCOPY 02/22/2025 8:53 AM CDT POCT GLUCOSE DEVICE Routine 02/22/2025 8 :14 AM CDT from Last 3 Months Results * CT Chest Abdomen Pelvis W Contrast (02/22/2025 10:24 AM CDT) Anatomical Region Laterality Modality Body N/A Computed Tomogra phy 02/22/2025 11:1 6 AM CDT Impressions 02/22/2025 2:22 PM CDT 1. No evidence of recurrent or metastatic disease in the chest, abdomen, or pelvis. 2. Unchanged 3 mm groundglass right upper lobe nodule. 3. Minimal fat stranding around several cysts left lower quadrant diverticula may represent mild diverticulitis. Recommend correlation with patient's symptoms. Dictated by: Yakov Waite MD The radiology attending physician has personally reviewed this study, and had reviewed and/or edited this written report and agrees with it. Electronically signed by: Cali Montano M.D. Narrative 02/22/2025 2:22 PM CDT EXAMINATION: Computed tomography of the chest, abdomen and pelvis with intravenous contrast HISTORY: 74-year-old female with colon cancer status post hemicolectomy and ileocolic anastomosis. TECHNIQUE: Transaxial computed tomographic images of the chest, abdomen and pelvis were obtained with intravenous contrast according to the standard protocol after the uneventful administration of 100 mL Opti-Ray 350 intravenous contrast. COMPARISON: Multiple prior exams, most recently 11/14/2023 FINDINGS: Chest: No axillary, supraclavicular, mediastinal, or hilar lymphadenopathy. Normal heart size. Mild thinning of the left ventricular apex may represent prior infarct. No pericardial effusion. Severe coronary artery calcifications. Normal caliber thoracic aorta with normal arch vessel branching pattern. Normal caliber main pulmonary artery. Central pulmonary embolism. Unchanged pleural parenchymal scarring in the bilateral lung apices no consolidation, pleural effusion, or pneumothorax. Unchanged 3 mm right upper lobe groundglass nodule (68.7). No suspicious pulmonary nodules. Abdomen/Pelvis: Small hiatal hernia. No suspicious liver lesions. No intrahepatic or extrahepatic biliary ductal dilation. The portal splenic, and superior mesenteric veins are patent. Normal gallbladder, pancreas, spleen, and bilateral adrenal glands. The kidneys enhance symmetrically. No hydronephrosis. Left interpolar renal cyst is unchanged. The urinary bladder is partially decompressed. The uterus is present and anteverted. No suspicious adnexal mass. Colonic diverticulosis without definite acute diverticulitis. There is mild stranding adjacent to several colonic diverticula in the left lower quadrant. Postoperative changes of right hemicolectomy with ileal colic anastomosis. No evidence of local disease recurrence. No evidence of small bowel obstruction. No free intraperitoneal fluid or gas. Normal caliber abdominal aorta with mild atherosclerotic ossification. A small umbilical hernia containing fat and loop of bowel, non-obstructed. No abdominal or pelvic lymphadenopathy. Degenerative changes of the lower lumbar spine. No suspicious osseous lesions. Procedure Note Cali Montano MD - 02/22/2025 EXAMINATION: Computed tomography of the chest, abdomen and pelvis with intravenous contrast HISTORY: 74-year-old female with colon cancer status post hemicolectomy and ileocolic anastomosis. TECHNIQUE: Transaxial computed tomographic images of the chest, abdomen and pelvis were obtained with intravenous contrast according to the standard protocol after the uneventful administration of 100 mL Opti-Ray 350 intravenous contrast. COMPARISON: Multiple prior exams, most recently 11/14/2023 FINDINGS: Chest: No axillary, supraclavicular, mediastinal, or hilar lymphadenopathy. Normal heart size. Mild thinning of the left ventricular apex may represent prior infarct. No pericardial effusion. Severe coronary artery calcifications. Normal caliber thoracic aorta with normal arch vessel branching pattern. Normal caliber main pulmonary artery. Central pulmonary embolism. Unchanged pleural parenchymal scarring in the bilateral lung apices no consolidation, pleural effusion, or pneumothorax. Unchanged 3 mm right upper lobe groundglass nodule (68.7). No suspicious pulmonary nodules. Abdomen/Pelvis: Small hiatal hernia. No suspicious liver lesions. No intrahepatic or extrahepatic biliary ductal dilation. The portal splenic, and superior mesenteric veins are patent. Normal gallbladder, pancreas, spleen, and bilateral adrenal glands. The kidneys enhance symmetrically. No hydronephrosis. Left interpolar renal cyst is unchanged. The urinary bladder is partially decompressed. The uterus is present and anteverted. No suspicious adnexal mass. Colonic diverticulosis without definite acute diverticulitis. There is mild stranding adjacent to several colonic diverticula in the left lower quadrant. Postoperative changes of right hemicolectomy with ileal colic anastomosis. No evidence of local disease recurrence. No evidence of small bowel obstruction. No free intraperitoneal fluid or gas. Normal caliber abdominal aorta with mild atherosclerotic ossification. A small umbilical hernia containing fat and loop of bowel, non-obstructed. No abdominal or pelvic lymphadenopathy. Degenerative changes of the lower lumbar spine. No suspicious osseous lesions. IMPRESSION: 1. No evidence of recurrent or metastatic disease in the chest, abdomen, or pelvis. 2. Unchanged 3 mm groundglass right upper lobe nodule. 3. Minimal fat stranding around several cysts left lower quadrant diverticula may represent mild diverticulitis. Recommend correlation with patient's symptoms. Dictated by: Yakov Waite MD The radiology attending physician has personally reviewed this study, and had reviewed and/or edited this written report and agrees with it. Electronically signed by: Cali Montano M.D. Pancho Hart MD IMG CT PROCEDURES Final Result * Colonoscopy (02/22/2025 8:53 AM CDT) Anatomical Region Laterality Modality Other Narrative Procedure Note Pancho Hart MD - 02/22/2025 8:53 AM CDT ENDOSCOPY LAB Patient Name: Kelsie Chaidez Procedure Date: 02/22/2025 8:53 AM Date of : 1950 Admit Type: Outpatient Age: 74 Gender: Female Attending MD: Pancho Hart M.D. Room: [facility] ENDOSCOPY ROOM 02 Note Status: Finalized Procedure: Colonoscopy Indications: High risk colon cancer surveillance: Personalhistory of colon cancer, Last colonoscopy 1 year ago Providers: Pancho Hart M.D. Referring MD: Isiah Irving M.D. Medicines: Monitored Anesthesia Care Complications: No immediate complications. Estimated Blood Loss: Estimated blood loss: none. Procedure: Pre-Anesthesia Assessment: - Immediately prior to administration ofmedications, the patient was re-assessed for adequacy to receive sedatives. The benefits, risks and alternatives of theprocedure and sedation were discussed and informed consentwas obtained. All questions were answered. Please referto the signed informed consent document in the medical record. The scope was passed under direct vision.The [id number] was introduced through the anusand advanced to the ileocolonic anastomosis. The colonoscopy was performed without difficulty. The patient tolerated the procedure well. The qualityof the bowel preparation was evaluated using the BBPS ([place] Bowel Preparation Scale) with scores of:Right Colon = NA (segment surgically absent or not seendue to reasons unrelated to bowel prep (i.e. technical difficulties or patient intolerance)), Transverse Colon = 3 (entire mucosa seen well with no residual staining, small fragments of stool or opaqueliquid) and Left Colon = 3 (entire mucosa seen well with no residual staining, small fragments of stool oropaque liquid). The total BBPS score equals 6. Findings: The perianal and digital rectal examinations were normal. There was evidence of a prior [id number] ileo-colonic anastomosisin the transverse colon. This was patent and was characterized byhealthy appearing mucosa. Many diverticula were found in the sigmoid colon. The exam was otherwise without abnormality on direct and retroflexion views. Impression: - Patent [id number]-hyip ileo-colonic anastomosis, characterized by healthy appearing mucosa. - Diverticulosis in the sigmoid colon. - The examination was otherwise normal on directand retroflexion views. - No specimens collected. Recommendation: - Repeat colonoscopy in 3 years for surveillance. Attending Participation: I was present and participated during the entire procedure, including non-manuel portions. Pancho Hart MD Pancho Hart M.D. 02/22/2025 9:41:38 AM Number of Addenda: 0 Note Initiated On: 02/22/2025 8:53 AM Pancho Hart MD ENDOSCOPY PROCEDURES Fi nal Result * POCT glucose (02/22/2025 8:14 AM CDT) Glucose, POC 100 70 - 199 mg/dL Comment: Interpretive Data Glucose is assumed to be non-fasting. Fasting Glucose reference ranges are: 0 - 150 years: 70 mg/dL - 99 mg/dL Current interpretive data was last revised on 2014. POC Performer [id number] [facility] P[facility] Device Number [id number] [facility] Blood 02/22/2025 8:14 AM CDT 02/22/2025 8:14 AM CDT Pancho Hart MD LAB POCT ORDERABLES - D EVICE Final Result KATLYN [facility] [address] [facility]. Department of [place], [place] [id number] from Last 3 Months Insurance [employer] [facility] MEDICARE ADVANTAGE [facility] MEDICARE ADVANTAGE [facility] MEDICARE ADVANTAGE [facility] MEDICARE ADVANTAGE Advance Directives For more information, please contact: [phone] Documents on File Type Date Recorded Patient It Help Desk Associate Expl anation ADVANCE DIRECTIVE 12/04/2023 4:57 PM POWER OF BLENDING MACHINE OPERATOR-MEDICAL ADVANCE DIRECTIVE 11/28/2023 4:44 PM POWER OF BLENDING MACHINE OPERATOR-MEDICAL * Full Code (Latest Code Status on File) Date Activated Date Inactivated Comments 02/22/2025 7:50 AM 02/22/2025 2:13 PM * Full Code Date Activated Date Inactivated Comments 11/26/2023 5:30 PM 11/29/2023 6:19 PM * Full Code Date Activated Date Inactivated Comments 11/18/2023 4:59 PM 11/21/2023 8:53 PM Healthcare Agents on File Name Relationship Healthcare Agent Relationshi p Communication Travis Chaidez Spouse Health Care Agent Fernando Chaidez Son First Alternate Health Care Agent Stefani Gr Daughter Second [facility] Health Care Agent Care Teams Correctional Probation Officer Relationship Specialty Start Date End Date Isiah Irving MD [address] [place] [address] PCP - General Family Medicine 04/14/18 Pancho Hart MD [address] [id number] [place], [place] [id number] Surgeon Colon and Rectal Surgery 12/18/23 Jaci Hodge MD [address] [facility] [address] [place] [address] Consulting Physician Cardiology 09/30/24
--- OUTSIDE RECORDS SUMMARY | 2025-04-14 12:19 | XMS_ITS | Encounter Summary ---
Author Organization [facility] Address [address] [facility] [address] [place] [address] Care Team Providers Care Respiratory Manager Name Role Phone Daron Zaldivar MD Primary Care Provider Isiah Irving MD Primary Care Provide r Mago Santizo RN Unavailable [phone] Pancho Hart MD Unavailable [phone] Jaci Hodge MD Unavailable [phone] Encounter Details Date Type Department Care Team (Late st Contact Info) Description 03/25/2017 Orders Only [facility] Provider, MD Emre [address] [place] [address] Social History Tobacco Use Types Packs/Day Years Used Date Smoking Tobacco: Never Alcohol Use Standard Drinks/Week Comments Yes 0 (1 standard drink = 0.6 oz pur e alcohol) Comments Unknown Sex and Gender Information Value Date Recorded Sex Assigned at Not on file Legal Sex 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 us Historical Provider [facility] PROCE DURES Final Result * CARDIOLOGY REPORT (03/25/2017) Anatomical Region Laterality Modality Other Narrative 03/25/2017 Ordered by an unspecified provider. us Historical Provider [facility] PROCE DURES Final Result documented in this encounter Visit Diagnoses Not on filedocumented in this encounter Care Teams Respiratory Manager Relationship Specialty Start Date End Date Daron Zaldivar MD [address] [place] [address] PCP - General 03/11/17 04/13/18 Isiah Irving MD [address] [place] [address] PCP - General Family Medicine 04/14/18 Mago Santizo, FROYLAN [address] [facility] [address] [place] [address] SHOP Outpatient Vacation Planner 12/02/23 12/26/23 Pancho Hart MD [address] [facility] [phone] [place] [address] Surgeon Colon and Rectal Surgery 12/18/23 Jaci Hodge MD [address] [facility] [address] [place], [place] [id number] Consulting Physician Cardiology 09/30/24 documented as of this encounter
--- OUTSIDE RECORDS SUMMARY | 2025-04-14 12:19 | XMS_ITS | Referral Summary ---
Author Organization [facility] [address] Address [address] [place] [address] Care Team Providers Care Cafeteria Helper Name Role Phone Isiah Irving MD Primary Care Provide r Pancho Hart MD Unavailable [phone] Jaci Hodge MD Unavailable Encounters Date Type Department Care Team Description 03/12/2025 Telephone [facility] Cardiology [address] [facility] Advanced Medicine 8th [place] [address] [place] [address] Yaritza Peter 03/05/2025 Telephone [facility] Surgery [address] [facility] Medical Office Building [address] [place] [address] Chanelle Echols PA 02/22/2025 9:05 AM CDT Anesthesia Event [facility] Endoscopy [address] [place] [address] Alta Desai MD 02/22/2025 10:15 AM CDT - 02/22/2025 11:59 PM CDT Hospital Encounter [facility] Imaging [address] [place] [address] Pancho Hart MD Malignant neoplasm of ascending colon (HCC) Discharge Disposition: Discharge to home or self care 02/22/2025 9:00 AM CDT - 02/22/2025 9:45 AM CDT Surgery [facility] Endoscopy [address] [address] Pancho Hart MD COLONOSCOPY 02/22/2025 7:27 AM CDT - 02/22/2025 10:13 AM CDT Hospital Encounter [facility] Endoscopy [address] [address] Pancho Hart MD Discharge Disposition: Discharge to home or self care 02/18/2025 Telephone [facility] Surgery [address] [facility] Medical Office Building [address] [place] [phone] Natalya Waller RMA confirm colonoscopy 02/02/2025 Telephone [facility] Cardiology [address] [place] [address] [place] [address] Jaic Hodge MD 02/02/2025 Telephone [facility] Surgery [address] [place] [address] Medical Office Building [address] [place] [address] Viviane Strauss RN 02/02/2025 Telephone [facility] Transplant Heart [address] [facility] [phone] [place] [address] Heather Mercedes from Last 3 Months Allergies Active Allergy Reactions Criticality Noted Date Comments Penicillin Unknown High Medications cyanocobalamin (vitamin B-12) 1,000 mcg tablet take 1 by Oral route every day 0 0 7 Active coenzyme Q10 10 mg capsuleIndicatio ns:heart health Take 20 capsules (200 mg total) by mouth ebay reseller before breakfast Active venlafaxine XR (EFFEXOR-XR) 37.5 mg 24 hr capsuleIndicatio ns:Generalized Anxiety Disorder Take 1 capsule (37.5 mg total) by mouth [employer]bay reseller before breakfast Active docusate sodium (DOK) 100 [...] tablet/chew tab (500 mg total) by mouth [employer]bay reseller before breakfast Active guaifenesin/dext romethorphan (ROBITUSSIN COUGH-CHEST [...] 1 tablet (40 mg total) by mouth [employer]bay reseller before breakfast 90 tablet 3 5 03/12/20 [...] infarction 02/16/2020 Coronary artery disease invo lving [place] coronary artery of [place] heart 11/09/2019 S/P coronary artery stent placement [...] Date Dyslipidemia 03/12/2017 02/23/2022 Overview (04/05/2017): Dyslipidemia Social History Tobacco Use Types Packs/Day Years Used Date Smoking Tobacco: Never Passive Smoke Exposure: Past Smokeless Tobacco: Never Tobacco Cessation:Counseling Given: Not Answered Alcohol Use Standard Drinks/Week Comments Yes 0 (1 standard drink = 0.6 oz pur e alcohol) [facility] Utilities Answer Date Recorded In the past 12 months has e electric, gas, oil, or water company threatened to shut off services in your [...] often do you attend chur ch or restoration services? More than 4 times per year 12/02/2023 Do you belong to any clubs o r organizations such as yarsani groups, unions, fraternal or athletic groups, or [...] place to sleep or slept in a assisted (including now)? No 12/02/2023 Personal Safety Answer Date Recorded Have you ever been in or are you currently in a harmful physical or emotional relationship or is someone making you feel afraid or unsafe? 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 Gender Identity Not on file Sexual Orientation Not on file Last Filed Vital Signs Vital Sign Reading [...] 02/22/2025 8:04 AM CDT Plan of Treatment Not on file Medical Devices Implanted Type Area Paperhanger Assistant Device Identifier Shelf Expiration Date Model / Serial / Lot Heart Stent Implanted:Qty : 4 Stent Heart Medtronic Card Vasc Surgery 3.5 X 22mm [place] Rx Coronary Stent [id number] - [id number] - [id number] Implanted:Qty : 1 on 11/26/2023 by Raffy Sanz MD at [facility] Stent Left: Anterior Descending Cornary Artery Medtronic Card Vasc Surgery 09/11/2026 [id number] / [id number] / [id number] Procedures Procedure Name Priority Date/Time Associated Diagnosis [...] it. Electronically signed by: Cali Montano M.D. us Pancho Hart MD IMG CT PROCEDURES Final [...] The scope was passed under direct vision.The [id number] was introduced through the anusand advanced to the ileocolonic anastomosis. The colonoscopy was performed without difficulty. The patient tolerated the procedure well. The qualityof the bowel preparation was evaluated using the BBPS ([place] Bowel Preparation Scale) with scores of:Right Colon [...] normal. There was evidence of a prior cqlu-yc-vpvj ileo-colonic anastomosisin the transverse colon. This was patent and was characterized byhealthy appearing mucosa. Many diverticula were found in the sigmoid colon. The exam was otherwise without abnormality on direct and retroflexion views. Impression: - Patent mhcj-ut-unom ileo-colonic anastomosis, characterized by healthy appearing mucosa. [...] 0 Note Initiated On: 02/22/2025 8:53 AM us Pancho Hart MD ENDOSCOPY PROCEDURES Fi nal Result * POCT glucose (02/22/2025 8:14 AM CDT) Glucose, POC 100 70 - 199 mg/dL Comment: Interpretive Data Glucose is assumed to be non-fasting. Fasting Glucose reference ranges are: 0 - 150 years: 70 mg/dL - 99 mg/dL Current interpretive data was last revised on 2014. POC Performer [id number] [employer] [facility] POC Device Number [id number] [facility] Blood 02/22/2025 8:14 AM CDT 02/22/2025 8:14 AM CDT us Pancho Hart MD LAB POCT ORDERJERAD - D KARLENE Final Result Performing Organization Address City/State/[facility] Co de Phone Number KATLYN [facility] [address] Department [place] [address] from Last 3 Months Insurance [employer] [facility] MEDICARE ADVANTAGE [facility] MEDICARE ADVANTAGE MEDICARE ADVANTAGE [facility] MEDICARE ADVANTAGE Advance Directives For more information, please contact: [phone] Documents on File Type Date Recorded Patient Hand Mold Maker Expl anation ADVANCE DIRECTIVE 12/04/2023 4:57 PM POWER OF FIELD MERCHANDISER-MEDICAL ADVANCE DIRECTIVE 11/28/2023 4:44 PM POWER OF FIELD MERCHANDISER-MEDICAL * Full Code (Latest Code Status on File) Date Activated Date Inactivated Comments 02/22/2025 7:50 AM 02/22/2025 2:13 PM * Full Code Date Activated Date Inactivated Comments 11/26/2023 5:30 PM 11/29/2023 6:19 PM * Full Code Date Activated Date Inactivated Comments 11/18/2023 4:59 PM 11/21/2023 8:53 PM Healthcare Agents on File Name Relationship Healthcare Agent Davidak soha Chaidez Spouse Health Care Agent Fernando Chaidez Son First Alternate Health Care Agent Stefani Gr Daughter Second Alternat e Health Care Agent Care Teams Cafeteria Helper Relationship Specialty Start Date End Date Isiah Irving MD [address] [place] [address] PCP - General Family Medicine 04/14/18 Pancho Hart MD [address] [facility] [phone] [place], [place] [phone] Surgeon Colon and Rectal Surgery 12/18/23 Jaci Hodge MD [address] [facility] [address] [place], [place] [id number] Consulting Physician Cardiology 09/30/24
--- OUTSIDE RECORDS SUMMARY | 2025-04-14 12:19 | XMS_ITS | Encounter Summary ---
Author Organization [facility] Address [address] [facility] [address] [place] [address] Care Team Providers Care Pressure Vessel Inspector Name Role Phone Daron Zaldivar MD Primary Care Provider Isiah Irving MD Primary Care Provide r Mago Santizo RN Unavailable [phone] Pancho Hart MD Unavailable Jaci Hodge MD Unavailable [phone] Encounter Details Date Type Department Care Team (Late Contact Info) Description 03/04/2017 Orders Only [facility] ProviderEmre MD [address] [place] [address] Social History Tobacco Use Types Packs/Day Years Used Date Smoking Tobacco: Never Assessed Comments Unknown Sex and Gender Information Value Date Recorded Sex Assigned at Not on file 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 Historical Provider [facility] STEPHANIE LOMAX Final Result documented in this encounter Visit Diagnoses Not on filedocumented in this encounter Care Teams Pressure Vessel Inspector Relationship Specialty Start Date End Date Daron Zaldivar MD [address] [place] [address] PCP - General 03/11/17 04/13/18 Isiah Irving MD [address] [place] [address] PCP - General Family Medicine 04/14/18 Mago Santizo RN [address] [facility] [address] [place], [place] [phone] SHOP Outpatient Bulk Tank Car Unloader 12/02/23 12/26/23 Pancho Hart MD [address] [facility] [phone] [place] [address] Surgeon Colon and Rectal Surgery 12/18/23 Jaci Hodge MD [address] [facility] [address] [place], [place] [phone] Consulting Physician Cardiology 09/30/24 documented as of this encounter
== END 2025-04-14 12:17 | disposition home or self-care (01) ==
LOC: CHSIMG 12:18
PROVIDERS: PCP Family Medicine; Visit Provider Nurse Practitioner Family
DX: Z12.31 Encounter for screening mammogram for malignant neoplasm of breast (principal); Z78.0 Asymptomatic menopausal state; M85.89 Other specified disorders of bone density and structure, multiple sites
CPT/HCPCS: 77063; 77067; 77080

== ENCOUNTER 2025-10-11 10:22 | Outpatient (CLI) | payer MEDICARE, SELFPAY ==
--- NOTE | ~2025-10-11 | CT_ITS ---
EXAMINATION: CT abdomen pelvis w con DATE: 10/11/2025 11:12 INDICATION: Left lower quadrant pain and constipation TECHNIQUE: Computed tomography (CT) of the abdomen and pelvis was performed with 100 cc Omnipaque 350 intravenous contrast. The dose-length product was 726.46 mGy-cm. Automated exposure control and iterative reconstruction technique were employed. COMPARISON: CT dated 11/25/2023 FINDINGS: Lung bases unremarkable. No significant pleural or pericardial effusion. Heart size normal. No significant vascular abnormality. Small bilateral fat-containing inguinal hernias. There is an umbilical hernia containing nonobstructed small bowel. There is thickening of the sigmoid colon with surrounding inflammation consistent with acute diverticulitis. No evidence for abscess or perforation. No free air. There is a surgical anastomosis in the right upper abdomen. Trace free fluid in the pelvis. No lymphadenopathy. Mild lumbar spondylosis or merely involving the facet joints. Fatty infiltration of the liver. The spleen, pancreas, adrenal glands and right kidney are unremarkable. There is left renal cysts. IMPRESSION: 1. Acute uncomplicated sigmoid diverticulitis. 2: Umbilical hernia containing nonobstructed small bowel. Reviewed, dictated and finalized at location I. EDICAL PHOTOGRAPHER
[2025-10-11 10:35] LABS: Hematocrit 33.5 % (35.0-42.0); Hemoglobin 10.8 g/dL (11.7-13.8); Mean Corpuscular HGB Conc 32.2 g/dL (32-36); Mean Corpuscular Hemoglobin 30.3 pg (27.0-31.0); Mean Corpuscular Volume 93.8 fL (78.0-102.0); Platelet Count Result 276 K/mm3 (150-420); Red Blood Count 3.57 M/mm3 (4.20-5.40); White Blood Count 8.8 K/mm3 (4.8-10.8)
[2025-10-11 10:45] LABS: Add Urine Microscopic? YES; Appearance Urine Clear (Clear); Glucose Urine UA Negative (Negative); Leukocyte Esterase Ur Negative (Negative); Nitrate Urine Negative (Negative); Specific Grav Ur 1.020 (1.010-1.020)
[2025-10-11 10:46] LABS: Alanine Aminotransferase 17 U/L (6-35); Albumin Level 4.8 g/dL (3.5-5.1); Alkaline Phosphatase 62 U/L (38-126); Anion Gap 13 mmol/L (4-12); Aspartate Amino Transferase 34 U/L (14-36); Bilirubin,Total 0.6 mg/dL (0.2-1.3); Blood Urea Nitrogen 15 mg/dL (7-17); Calcium 9.6 mg/dL (8.4-10.2); Carbon Dioxide 25 mmol/L (22-30); Chloride 101 mmol/L (98-107); Estimated Glomerular Filt Rate 57; Glucose 113 mg/dL (65-110); Osmolality Calculated 289 mOsm/kg (285-295); Potassium 4.0 mmol/L (3.4-5.0); Sodium 139 mmol/L (137-145); Total Protein 8.1 g/dL (6.3-8.2)
--- OUTSIDE RECORDS SUMMARY | 2025-10-11 11:45 | XMS_ITS | Clinical Summary ---
Author Organization [facility] [address] Address [address] [place] [address] Care Team Providers Care Manager Subway Name Role Phone Isiah Irving MD Primary Care Provide r Pancho Hart MD Unavailable [phone] Jaci Hodge MD Unavailable [phone] Florence Macdonald Unavailable Unavailable Allergies Active Allergy Reactions Criticality Noted Date Comments Penicillin Unknown High Medications cyanocobalamin (vitamin B-12) 1,000 mcg tablet take 1 by Oral route every day 0 0 7 Active coenzyme Q10 10 mg capsuleIndicatio ns:heart health Take 20 capsules (200 mg total) by mouth binder coverstitch before breakfast Active venlafaxine XR (EFFEXOR-XR) 37.5 mg 24 hr capsuleIndicatio ns:Generalized Anxiety Disorder Take 1 capsule (37.5 mg total) by mouth binder coverstitch before breakfast Active docusate sodium (DOK) 100 [...] tablet/chew tab (500 mg total) by mouth binder coverstitch before breakfast Active guaifenesin/dext romethorphan (ROBITUSSIN COUGH-CHEST [...] 1 tablet (40 mg total) by mouth binder coverstitch before breakfast 90 tablet 3 5 03/12/20 [...] infarction 02/16/2020 Coronary artery disease invo lving quinault coronary artery of [place]ult heart 11/09/2019 S/P coronary artery stent placement [...] Date Dyslipidemia 03/12/2017 02/23/2022 Overview (04/05/2017): Dyslipidemia Surgical History Surgery Date Site/Laterality Comments APPENDECTOMY [...] drink = 0.6 oz pur e alcohol) [facility] Utilities Answer Date Recorded In the past 12 months has Diet TV electric, gas, oil, or water [employer] threatened to shut off services in your home? No 12/02/2023 Social Connection and Isolation Panel Answer Date Recorded In a typical week, how many times do you talk on the phone with family, friends, or neighbors? More than three times a week 12/02/2023 How often do you get togethe r with friends or relatives? More than three times a week 12/02/2023 How often do you attend [facility] or quaker services? More than 4 times per year 12/02/2023 Do you belong to any clubs o r organizations such as nondenominational groups, unions, fraternal or athletic groups, or [...] place to sleep or slept in a penitentiary (including now)? No 12/02/2023 Personal Safety Answer Date Recorded Have you ever been in or are you currently in a harmful physical or emotional relationship or is someone making you feel afraid or unsafe? Denies 02/22/2025 Comments No Sex and Gender Information Value Date Recorded Sex Assigned at Not on file Legal Sex Female 1:02 PM THEATRICAL AGENT Gender Identity Not on file Sexual Orientation Not on file Last Filed Vital Signs Vital Sign Reading Time Taken Comments Blood Pressure 119/78 06/30/2025 10:27 AM CDT Pulse 82 06/30/2025 10:27 AM CDT Temperature 36.7 C (98.1 F) 06/30/2025 10:27 AM CDT Respiratory Rate 28 02/22/2025 10:0 5 AM CDT Oxygen Saturation 100% 06/30/2025 10: 27 AM CDT Inhaled Oxygen Concentration - - Weight 74.8 kg (164 lb 12.8 oz) 025 10:27 AM CDT Height 170.2 cm (5' 7) 06/30/2025 10:2 7 AM CDT Body Mass Index 25.81 06/30/2025 10:27 AM CDT Plan of Treatment Health Maintenance Due Date Last Done Comments Hepatitis C Screening 1950 Osteoporosis Screening-Bone Density Scan 1950 DTaP/Tdap/Td Vaccine (1 - Tdap) 1961 Hepatitis B Screening 1968 Zoster Vaccine (1 of 2) 2000 Well Visit 65+ 2015 Pneumococcal vaccine 65+ (2 of 2 - PPSV23, PCV20, or PCV21) 11/25/2017 09/30/2017 Depression Screening 11/25/2024 11/25/2023 Influenza Vaccine (#1) 2025 9, 08/08/2018, 08/19/2017 Fall Risk Assessment 02/22/2026 02/22/2025 Colon Cancer Screening-Colonoscopy 02/22/20352024 Colon Cancer Screening-CT Colonography Discontinued 02/22/2025 Colon Cancer Screening-DNA Stool Discontinued 02/23/20 Colon Cancer Screening-FIT Discontinued 02/22/2025 Colon Cancer Screening-Sigmoidoscopy Discontinued 02/09 Medical Devices Implanted Type Area Exhibit Display Representative Device Identifier Shelf Expiration Date Model / Serial / Lot Heart Stent Implanted:Qty : 4 Stent Heart Medtronic Card Vasc Surgery 3.5 X 22mm [employer] [place] Rx Coronary Stent [id number] - [id number] - [id number] Implanted:Qty : 1 on 11/26/2023 by Raffy Sanz MD at [facility] Stent Left: Anterior Descending Cornary Artery Medtronic Card Vasc Surgery 09/11/2026 [id number] / [id number] / [id number] Procedures Procedure Name Priority Date/Time Associated Diagnosis Comments COLONOSCOPY 02/22/2025 8:53 AM CDT from Last 3 Months or Most Recently Relevant to Health Maintenance Results * Colonoscopy (02/22/2025 8:53 AM CDT) Anatomical Region Laterality Modality Other Narrative Procedure Note Pancho Hart MD - 02/22/2025 8:53 AM CDT ENDOSCOPY LAB Patient Name: Kelsie Chaidez Procedure Date: 02/22/2025 8:53 AM Date of : 1950 Admit Type: Outpatient Age: 74 Gender: Female Attending MD: Pancho Hart M.D. Room: [facility] ENDOSCOPY ROOM 02 Note Status: Finalized Procedure: [...] The scope was passed under direct vision.The [id number] was introduced through the anusand advanced to the ileocolonic anastomosis. The colonoscopy was performed without difficulty. The patient tolerated the procedure well. The qualityof the bowel preparation was evaluated using the BBPS ([place] Bowel Preparation Scale) with scores of:Right Colon [...] normal. There was evidence of a prior wycu-fz-ocxp ileo-colonic anastomosisin the transverse colon. This was patent and was characterized byhealthy appearing mucosa. Many diverticula were found in the sigmoid colon. The exam was otherwise without abnormality on direct and retroflexion views. Impression: - Patent ihca-wr-iody ileo-colonic anastomosis, characterized by healthy appearing mucosa. [...] Hart MD ENDOSCOPY PROCEDURES Fi nal Result from Last 3 Months or Most Recently Relevant to Health Maintenance Insurance [employer] [facility] MEDICARE ADVANTAGE [facility]IC[facility] Address: [address] [address] [place] [address] [facility] MEDICARE ADVANTAGE [facility]IC[facility] Address: [address] [address] [place] [address] [facility] MEDICARE ADVANTAGE [facility] MEDICARE ADVANTAGE [facility]ICARE Address: [address] [place] [id number] Advance Directives For more information, please contact: [phone] Documents on File Type Date Recorded Patient Surgical Assistant Expl anation ADVANCE DIRECTIVE 12/04/2023 4:57 PM POWER OF TWISTING MACHINE OPERATOR-MEDICAL ADVANCE DIRECTIVE 11/28/2023 4:44 PM POWER OF TWISTING MACHINE OPERATOR-MEDICAL * Full Code (Latest Code Status on File) Date Activated Date Inactivated Comments 02/22/2025 7:50 AM 02/22/2025 2:13 PM * Full Code Date Activated Date Inactivated Comments 11/26/2023 5:30 PM 11/29/2023 6:19 PM * Full Code Date Activated Date Inactivated Comments 11/18/2023 4:59 PM 11/21/2023 8:53 PM Healthcare Agents on File Name Relationship Healthcare Agent [facility] p Communication Travis Chaidez Spouse Health Care Agent Fernando Chaidez Son First Alternate Health Care Agent Stefani Pedersen Second [facility] Health Care Agent Care Teams Manager Subway Relationship Specialty Start Date End Date Isiah Irving MD [address] [place] [address] PCP - General Family Medicine 04/14/18 Pancho Hart MD [id number] [place], [place] [id number] Surgeon Colon and Rectal Surgery 12/18/23 Jaci Hodge MD [address] [id number] Consulting Physician Cardiology 09/30/24 Florence Macdonald Primary Director It Project 07/29/25
--- OUTSIDE RECORDS SUMMARY | 2025-10-11 11:45 | XMS_ITS | Clinical Summary ---
Author Organization [facility] Address [address] [place] [address] Care Team Providers Care Form Maker Plaster Name Role Phone Jaci Roy APN, district fire chief Provider + Social History Tobacco Use Types Packs/Day Years Used Date Smoking Tobacco: Never Assessed Comments Unknown Sex and Gender Information Value Date Recorded Sex Assigned at Not on file Legal Sex Female 6:21 PM CDT Gender Identity Not on file Sexual Orientation Not on file Last Filed Vital Signs Vital Sign Reading Time Taken Comments Blood Pressure 128/70 07/24/2013 10:35 AM CDT Pulse 71 07/24/2013 10:35 AM CDT Temperature - - Respiratory Rate - - Oxygen Saturation - - Inhaled Oxygen Concentration - - Weight 76.3 kg (168 lb 5 oz) 07/24/2013 10:35 AM CDT Height 168.9 cm (5' 6.5) 07/24/2013 10:35 AM CD T Body Mass Index 26.76 07/24/2013 10:35 AM CDT Plan of Treatment Health Maintenance Due Date Last Done Comments Colorectal Cancer Screening Colonoscopy (10 Years) 1950 Hepatitis C 1968 DTaP, Tdap and Td Vaccines ( 1 - Tdap) 1969 Pneumococcal Vaccine: 50+ Ye ars (1 of 1 - PCV) 2000 Zoster Vaccines (1 of 2) 2000 Annual Medicare Wellness Visit 2015 Dexa Scan (General) 2015 RSV Immunization or 60+ Years (1 - 1-dose 75+ series) 2025 COVID-19 Vaccine ( - 2024-2 6 season) 2025 Influenza Adult (#1) 2025 Hepatitis A Vaccines Aged Out No long er eligible based on patient's age to complete this topic Meningococcal B Vaccine Aged Out No l onger eligible based on patient's age to complete this topic Meningococcal Vaccine Aged Out No michele joao eligible based on patient's age to complete this topic RSV Immunizations Under 20 Months Aged Out No longer eligible based on patient's age to complete this topic Insurance MEDICARE [facility] Care Teams Form Maker Plaster Relationship Specialty Start Date End Date Jaci Roy APN, RN [address] [place], [place] [id number] PCP - General Nurse Practitioner Family 09/27/21
--- OUTSIDE RECORDS SUMMARY | 2025-10-11 11:45 | XMS_ITS | Encounter Summary ---
Author Organization [facility] Address [address] [address] Care Team Providers Care Soaping Machine Back Tender Name Role Phone Daron Zaldivar MD Primary Care Provider Isiah Irving MD Primary Care Provide r Mago Santizo RN Unavailable [phone] Pancho Hart MD Unavailable [phone] Jaci Hodge MD Unavailable [phone] Florence Macdonald Unavailable Unavailable Encounter Details Date Type Department Care Team (Late st Contact Info) Description 03/25/2017 [facility] Only [facility] ProviderEmre MD [address] [place] [address] Social History Tobacco Use Types Packs/Day Years Used Date Smoking Tobacco: Never Alcohol Use Standard Drinks/Week Comments Yes 0 (1 standard drink = 0.6 oz pur e alcohol) Comments Unknown Sex and Gender Information Value Date Recorded Sex Assigned at Not on file Legal Sex Female 1:02 PM PASTE UP ARTIST APPRENTICE Gender Identity Not on file Sexual Orientation [...] by an unspecified provider. us Historical Provider MD [facility] PROCE DURES Final Result * CARDIOLOGY REPORT (03/25/2017) Anatomical Region Laterality Modality Other Narrative 03/25/2017 Ordered by an unspecified provider. us Historical Provider [facility] C[facility] SERVICES PROCE DURES Final Result documented in this encounter Visit Diagnoses Not on filedocumented in this encounter Care Teams Soaping Machine Back Tender Relationship Specialty Start Date End Date Daron Zaldivar MD [address] [facility] [address] [place] [address] PCP - General 03/11/17 04/13/18 Isiah Irving MD [address] [place] [address] PCP - General Family Medicine 04/14/18 Mago Santizo, RN [address] [facility] [address] [place] [address] SHOP Outpatient Clinical Project Assistant 12/02/23 12/26/23 Pancho Hart MD [phone] [place] [address] Surgeon Colon and Rectal Surgery 12/18/23 Jaci Hodge MD [address] [facility] [address] [place] [address] Consulting Physician Cardiology 09/30/24 Florence Macdonald Primary Cluster Bore Operator 07/29/25 documented as of this encounter
--- OUTSIDE RECORDS SUMMARY | 2025-10-11 11:45 | XMS_ITS ---
Author Organization [facility] [address] Address [address] [place] [address] Care Team Providers Care Hop Separator Name Role Phone Isiah Irving MD Primary Care Provide r Pancho Hart MD Unavailable [phone] Jaci Hodge MD Unavailable Florence Macdonald Unavailable Unavailable Active Problems Problem Noted Date Diagnosed Date [...] infarction 02/16/2020 Coronary artery disease invo lving n[place]ana coronary artery of [place] heart 11/09/2019 S/P coronary artery stent placement [...] Lifetime Dose Automatic Entry Manual Entr y Fluoro Time 16 minutes 0 minutes 16 minutes Air kerma at the reference point (Ka,r) 1,089 mGy 0 mGy 1,089 mGy DLP 1,589 mGycm 1,589 mGycm 0 mGycm DAP 53.69 Gy-cm2 0 Gy-cm2 53.69 Gy-cm2 Resolved Problems Problem Noted Date Diagnosed Date Resolved Date Dyslipidemia 03/12/2017 02/23/2022 Overview (04/05/2017): Dyslipidemia
--- OUTSIDE RECORDS SUMMARY | 2025-10-11 11:45 | XMS_ITS | Encounter Summary ---
Author Organization [facility] Address [address] [facility] [address] [place] [address] Care Team Providers Care Backside Grinder Name Role Phone Daron Zaldivar MD Primary Care Provider Isiah Irving MD Primary Care Provide r Mago Santizo RN Unavailable [phone] Pancho Hart MD Unavailable [phone] Jaci Hodge MD Unavailable [phone] Florence Macdonald Unavailable Unavailable Encounter Details Date Type Department Care Team (Late st Contact Info) Description 03/04/2017 Orders Only [facility] ProviderEmre MD [address] [place] [address] Social History Tobacco Use Types Packs/Day Years Used Date Smoking Tobacco: Never Assessed Comments Unknown Sex and Gender Information Value Date Recorded Sex Assigned at Not on file Legal Sex Female 1:02 PM BILLBOARD ERECTOR HELPER Gender Identity Not on file Sexual Orientation Not on file documented as of this encounter Plan of Treatment Not on file documented as of this encounter Procedures Procedure Name Priority Date/Time Associated Diagnosis Comments CARDIOLOGY REPORT 03/04/2017 documented in this encounter Results * CARDIOLOGY REPORT (03/04/2017) Anatomical Region Laterality Modality Other Narrative 03/04/2017 Ordered by an unspecified provider. us Historical Provider [facility] STEPHANIE LOMAX Final Result documented in this encounter Visit Diagnoses Not on filedocumented in this encounter Care Teams Backside Grinder Relationship Specialty Start Date End Date Daron Zaldivar MD [address] [place] [address] PCP - General 03/11/17 04/13/18 Isiah Irving MD [address] [place] [address] PCP - General Family Medicine 04/14/18 Mago Santizo RN [address] [facility] [address] [place] [address] SHOP Outpatient Hydraulic Boom Operator 12/02/23 12/26/23 Pancho Hart MD [phone] [place], [place] [id number] Surgeon Colon and Rectal Surgery 12/18/23 Jaci Hodge MD [address] [facility] [address] [place], [place] [id number] Consulting Physician Cardiology 09/30/24 Florence Macdonald Primary Co Chairman 07/29/25 documented as of this encounter
== END 2025-10-11 10:23 | disposition home or self-care (01) ==
LOC: CHSLAB 10:26
PROVIDERS: PCP Family Medicine; Visit Provider Nurse Practitioner Family
DX: R10.814 Left lower quadrant abdominal tenderness (principal); K59.00 Constipation, unspecified; K57.92 Diverticulitis of intestine, part unspecified, without perforation or abscess without bleeding; K42.9 Umbilical hernia without obstruction or gangrene
CPT/HCPCS: 36415; 74177; 80053; 81001; 85027; Q9967

== ENCOUNTER 2025-10-26 14:17 | Outpatient (CLI) | payer MEDICARE, SELFPAY ==
--- NOTE | 2025-10-26 14:24 | ECHO_ITS ---
Patient Info Name: Kelsie Chaidez Age: 75 years : 1950 Gender: Female Ht: 68 in Wt: 162 lbs BSA: 1.89 m2 HR: 76 bpm BP: 100 / 80 mmHg Technical Quality: Fair Exam Date: 10/26/2025 2:29 PM Patient Status: O Admit Date: 10/26/2025 Exam Type: CA echo limited w contrast Limited two-dimensional transthoracic echocardiogram is performed with contrast. Strain analysis performed. Claims Auditor: Kevin Major III Ordering Physician: Jaci Hodge Contrast/Agitated Saline Contrast/Ag. Saline: Definity Amount: 2.00 ml Administered By: Kevin Major III Existing IV Access: No IV Access Condition: patent with no signs of infiltration New IV Access: Left Site Condition: IV removed Summary 1. Definity contrast administered improved wall motion interpretation. 2. Left ventricular chamber dimension is moderately enlarged. 3. Left ventricular systolic function is severely globally reduced, estimated at 25-30. 4. The entire apex and anteroapical and inferoapical segments are akinetic. 5. The left ventricular diastolic function is indeterminate. 6. Global longitudinal strain is abnormal at -7.9%. 7. There is mild aortic valve sclerosis. 8. There is trace aortic valve regurgitation. Left Ventricle Tissue doppler was not performed. Left ventricular chamber dimension is moderately enlarged. Left ventricular systolic function is severely globally reduced, estimated at 25-30. The left ventricular diastolic function is indeterminate. Global longitudinal strain is abnormal at -7.9%. Definity contrast administered improved wall motion interpretation. The entire apex and anteroapical and inferoapical segments are akinetic. Right Ventricle Right ventricular chamber dimension is normal. Right ventricular systolic function is normal. Left Atria Left atrial chamber dimension is normal. Right Atria Right atrial chamber dimension is normal. Aortic Valve The aortic valve is trileaflet. There is mild aortic valve sclerosis. There is no aortic valve stenosis. There is trace aortic valve regurgitation. Pulmonic Valve There is no pulmonic regurgitation. Mitral Valve There is no mitral valve stenosis. There is no mitral valve regurgitation. Tricuspid Valve There is no tricuspid valve regurgitation. Pericardium/Pleural There is no pericardial effusion. Inferior Vena Cava Normal inferior vena cava with >50% collapse upon inspiration consistent with normal right atrial pressure, 5 mmHg. Aorta The aortic root size at the sinus of Valsalva is normal. Tricuspid Valve Name Value Normal Estimated PAP/RSVP RA Pressure 5 mmHg <=5 Ventricles Name Value Normal LV Fractional Shortening/Ejection Fraction 2D/MM LV Diastolic Volume (4C MOD) 85 ml LV EF (4C MOD) 27 % LV Diastolic Volume (2C MOD) 77 ml LV EF (2C MOD) 28 % LV Diastolic Volume (BP MOD) 81 ml 46-106 LV Diastolic Volume Index (BP MOD) 43 ml/m2 29-61 LV Systolic Volume (BP MOD) 58 ml 14-42 LV Systolic Volume Index (BP MOD) 31 ml/m2 8-24 LV EF (BP MOD) 29 % 54-74 LV Diastolic Length (4C) 7.7 cm LV Systolic Length (4C) 7.1 cm LV Stroke Volume (4C MOD) 23 ml EchoPAC Name Value Normal AutoEF LVCO_BiP_Q (Yaoi8RSE) 2.1 l/min LVEF_BiP_Q (Ypqq4ARU) 30 % LVSV_BiP_Q (Aniw4NCY) 28 ml LVVED_BiP_Q ([id number]) 93 ml LVVES_BiP_Q (Ajxz9PBP) 65 ml LVEF_4Ch_Q (Mrvg0AWK) 27 % LVEF_2Ch_Q (Cspv5WGI) 35 % REBECCA LV Apical Anterior Longitudinal Strain (REBECCA) -3.2 % LV Apical Anteroseptal Longitudinal Strain (REBECCA) -5.9 % LV Apical Inferior Longitudinal Strain (REBECCA) -9.2 % LV Apical Lateral Longitudinal Strain (REBECCA) -0.9 % LV Apical Posterior Longitudinal Strain (REBECCA) -3.6 % LV Apical Septal Longitudinal Strain (REBECCA) -3.2 % AV Closure (REBECCA) 434 ms LV Basal Anterior Longitudinal Strain (REBECCA) -7.1 % LV Basal Anteroseptal Longitudinal Strain (REBECCA) -7.5 % LV Basal Inferior Longitudinal Strain (REBECCA) -19.6 % LV Basal Anterolateral Longitudinal Strain (REBECCA) -12.1 % LV Basal Inferolateral Longitudinal Strain (REBECCA) -23.1 % LV Basal Inferoseptal Longitudinal Strain (REBECCA) -10.4 % LV Global Longitudinal Strain (2C REBECCA) -8.3 % LV Global Longitudinal Strain (4C REBECCA) -7.6 % LV Global Longitudinal Strain (APLAX REBECCA) -7.7 % LV Global Longitudinal Strain (REBECCA) -7.9 % LV Mid Anterior Longitudinal Strain (REBECCA) -2.1 % LV Mid Anteroseptal Longitudinal Strain (REBECCA) -4.4 % LV Mid Inferior Longitudinal Strain (REBECCA) -12.7 % LV Mid Anterolateral Longitudinal Strain (REBECCA) -9.1 % LV Mid Inferolateral Longitudinal Strain (REBECCA) -11.2 % LV Mid Inferoseptal Longitudinal Strain (REBECCA) -6.4 % Report Signatures
[2025-10-26] MEDS: PERFLUTREN LIPID MICROSPHERES 1.5 ML VIAL DILUTED TO 10 ML TOTAL VOLUME IV PUSH (16:47)
--- NOTE | 2025-10-26 16:47 | IVDEFINITY ---
Prior to administration of IV Definity the patient was educated on the risks and benefits of the imaging enhancing agent including potential adverse side effects. The patient verbalized understanding. Allergies were verified. No exclusion criteria were identified and at least one of the following inclusion criteria were met: 1) physician request, 2) patient technically difficult to image (per the [place] Society of Echocardiography guidelines of two or more segments not discernable within the apical view), or 3) questionable left ventricular function. ?
--- OUTSIDE RECORDS SUMMARY | 2025-10-26 16:50 | XMS_ITS | Encounter Summary ---
Author Organization [facility] Address [address] [address] Care Team Providers Care Four Slide Operator Name Role Phone Daron Zaldivar MD Primary Care Provider Isiah Irving MD Primary Care Provide r Mago Santizo RN Unavailable [phone] Pancho Hart MD Unavailable [phone] Jaci Hodge MD Unavailable [phone] Florence Macdonald Unavailable Unavailable Encounter Details Date Type Department Care Team (Late st Contact Info) Description 03/25/2017 Orders Only [facility] ProviderEmre MD [address] [place] [address] Social History Tobacco Use Types Packs/Day Years Used Date Smoking Tobacco: Never Alcohol Use Standard Drinks/Week Comments Yes 0 (1 standard drink = 0.6 oz pur e alcohol) Comments Unknown Sex and Gender Information Value Date Recorded Sex Assigned at Not on file Legal Sex Female 1:02 PM YAM CURER Gender Identity Not on file Sexual Orientation [...] on filedocumented in this encounter Care Teams Four Slide Operator Relationship Specialty Start Date End Date Daron Zaldivar MD [address] [facility] [address] [place] [address] PCP - General 03/11/17 04/13/18 Isiah Irving MD [address] [place] [address] PCP - General Family Medicine 04/14/18 Mago Santizo, RN [address] [facility] [address] [place] [address] SHOP Outpatient Electron Gun Assembler 12/02/23 12/26/23 Pancho Hart MD [phone] [place] [address] Surgeon Colon and Rectal Surgery 12/18/23 Jaci Hodge MD [address] [facility] [address] [place] [address] Consulting Physician Cardiology 09/30/24 Florence Macdonald Primary It Telecom Technician 07/29/25 documented as of this encounter
--- OUTSIDE RECORDS SUMMARY | 2025-10-26 16:50 | XMS_ITS | Clinical Summary ---
Author Organization [facility] [place] [address] Address [address] [place] [address] Care Team Providers Care Strategic Manager Name Role Phone Isiah Irving MD Primary Care Provide r Pancho Hart MD Unavailable [phone] Jaci Hodge MD Unavailable [phone] Florence Macdonald Unavailable Unavailable Allergies Active Allergy Reactions Criticality Noted Date Comments Penicillin Unknown High Medications cyanocobalamin (vitamin B-12) 1,000 mcg tablet take 1 by Oral route every day 0 0 7 Active coenzyme Q10 10 mg capsuleIndicatio ns:heart health Take 20 capsules (200 mg total) by mouth bumper and painter before breakfast Active venlafaxine XR (EFFEXOR-XR) 37.5 mg 24 hr capsuleIndicatio ns:Generalized Anxiety Disorder Take 1 capsule (37.5 mg total) by mouth bumper and painter before breakfast Active docusate sodium (DOK) 100 [...] tablet/chew tab (500 mg total) by mouth bumper and painter before breakfast Active guaifenesin/dext romethorphan (ROBITUSSIN COUGH-CHEST [...] 1 tablet (40 mg total) by mouth bumper and painter before breakfast 90 tablet 3 5 03/12/20 [...] infarction 02/16/2020 Coronary artery disease invo lving [place] coronary artery of [place] heart 11/09/2019 S/P coronary artery stent placement [...] Encounters Date Type Department Care Team Description 10/13/[address] [facility] Trans[facility] Heart [id number] [place] [address] Florence Macdonald 10/11/2025 Telephone [facility] [address] [facility] [address] 8th [place] [address] [place] [address] Jaci Hodge MD from Last 3 Months Surgical History Surgery [...] drink = 0.6 oz pur e alcohol) [facility] Utilities Answer Date Recorded In the past 12 months has [employer], [employer], oil, or water [employer] threatened to shut off services in your [...] week 12/02/2023 How often do you attend [facility] or jew services? More than 4 times per year 12/02/2023 Do you belong to any clubs o r organizations such as mormonism groups, unions, fraternal or athletic groups, or [...] on file Legal Sex Female 1:02 PM HEALTH SYSTEMS ANALYST Gender Identity Not on file Sexual Orientation [...] Discontinued 02/09 Medical Devices Implanted Type Area Fermenting Cellar Dropper Device Identifier Shelf Expiration Date Model / Serial / Lot Heart Stent Implanted:Qty : 4 Stent Heart Medtronic Card Vasc Surgery 3.5 X 22mm [place] [employer] Rx Coronary Stent [id number] - [id number] - [id number] Implanted:Qty : 1 on 11/26/2023 by Raffy Sanz MD at [facility] Stent Left: Anterior Descending Cornary Artery Medtronic Card Vasc Surgery 09/11/2026 [id number] / [id number] / [id number] Procedures Procedure Name Priority Date/Time Associated Diagnosis [...] Female Attending MD: Pancho Hart M.D. Room: [facility] ENDOSCOPY ROOM 02 Note Status: Finalized Procedure: [...] The scope was passed under direct vision.The [id number] was introduced through the anusand advanced to the ileocolonic anastomosis. The colonoscopy was performed without difficulty. The patient tolerated the procedure well. The qualityof the bowel preparation was evaluated using the BBPS ([place] Bowel Preparation Scale) with scores of:Right Colon [...] normal. There was evidence of a prior qdfz-me-jced ileo-colonic anastomosisin the transverse colon. This was patent and was characterized byhealthy appearing mucosa. Many diverticula were found in the sigmoid colon. The exam was otherwise without abnormality on direct and retroflexion views. Impression: - Patent [id number] ileo-colonic anastomosis, characterized by healthy appearing mucosa. [...] Most Recently Relevant to Health Maintenance Insurance [employer] [facility] MEDICARE AD[facility]ANT[facility] Address: [address] [address] [place] [address] [facility] MEDICARE AD[facility]ANTAGE [facility] MEDIC[facility] Address: [address] [place], [place] [id number] MEDICARE ADVANTAGE [facility] MEDICARE Address: [address] [place], [place] [phone] MEDICARE ADVANTAGE [facility] MEDICARE Address: [address] [place] [address] Advance Directives For more information, please contact: [phone] Documents on File Type Date Recorded Patient Supervisor Delivery Department Expl anation ADVANCE DIRECTIVE 12/04/2023 4:57 PM POWER OF APPLICATION PACKAGER-MEDICAL ADVANCE DIRECTIVE 11/28/2023 4:44 PM POWER OF APPLICATION PACKAGER-MEDICAL * Full Code (Latest Code Status on [...] Alternat e Health Care Agent Care Teams Strategic Manager Relationship Specialty Start Date End Date Isiah Irving MD [address] [place], [place] [id number] PCP - General Family Medicine 04/14/18 Pancho Hart MD [phone] [place] [address] Surgeon Colon and Rectal Surgery 12/18/23 Jaci Hodge MD [address] [address] Consulting Physician Cardiology 09/30/24 Florence Macdonald Primary Grocery Team Member 07/29/25
--- OUTSIDE RECORDS SUMMARY | 2025-10-26 16:50 | XMS_ITS | Encounter Summary ---
Author Organization [facility] Address [address] [place] [address] Phone Care Team Providers Care Display Fabricator Name Role Phone Isiah Irving MD Primary Care Provide r Pancho Hart MD Unavailable [phone] Jaci Hodge MD Unavailable Florence Macdonald Unavailable Unavailable Encounter Details Date Type Department Care Team (Late st Contact Info) Description 10/11/2025 Telephone [facility] Medicine Cardiology [address] [facility] 8th [place] [address] [place] [id number] Jaci Hodge MD [address] [place] [address] Social History Tobacco Use Types Packs/Day Years Used Date Smoking Tobacco: Never Passive Smoke Exposure: Past Smokeless Tobacco: Never Alcohol Use Standard Drinks/Week Comments Yes 0 (1 standard drink = 0.6 oz pur e alcohol) [facility] Utilities Answer Date Recorded In the past 12 months has [employer] electric, gas, oil, or water company threatened [...] often do you attend chur ch or hoahaoism services? More than 4 times per year 12/02/2023 Do you belong to any clubs o r organizations such as sabianist groups, unions, fraternal or athletic groups, or [...] place to sleep or slept in a long-term (including now)? No 12/02/2023 Personal Safety Answer Date Recorded Have you ever been in or are you currently in a harmful physical or emotional relationship or is someone making you feel afraid or unsafe? Denies 02/22/2025 Comments No Sex and Gender Information Value Date Recorded Sex Assigned at Not on file Legal Sex Female 1:02 PM CUSTOMER ADVOCACY MANAGER Gender Identity Not on file Sexual Orientation Not on file documented as of this encounter Miscellaneous Notes * Telephone Encounter - Janie Lloyd RN - 10/11/2025 1:45 PM CUSTOMER ADVOCACY MANAGER Spoke with pt. She cancelled her appt and echo tomorrow and nted that Dr Hodge was offering virtualvisits. She didn't hae my chart set up and wasn't interested so wanted to get her echo done locallyan reschedule after that. I notified the admins to fax the order locally and she said she would make a follow up appt once she knew when her echo was. Not further questions at this time. OMER ADVOCACY MANAGER * Telephone Encounter - Natalya Perez - 10/11/2025 1:16 PM CST Ayesha Pt calling stating she would like to know if she can do her Echo locally in [place], [place]. Please call to inform if she can have echo at [facility] in [place]. OMER ADVOCACY MANAGER documented in this encounter Plan of Treatment Not on file documented as of this encounter Visit Diagnoses Not on filedocumented in this encounter Care Teams Display Fabricator Relationship Specialty Start Date End Date Isiah Irving MD [address] [place] [address] PCP - General Family Medicine 04/14/18 Pancho Hart MD [phone] [place] [address] Surgeon Colon and Rectal Surgery 12/18/23 Jaci Hodge MD [address] [address] Consulting Physician Cardiology 09/30/24 Florence Macdonald Primary Insert Operator 07/29/25 documented as of this encounter
--- OUTSIDE RECORDS SUMMARY | 2025-10-26 16:50 | XMS_ITS | Clinical Summary ---
Author Organization [facility] Address [address] [place] [address] Care Team Providers Care Burn Crew Member Name Role Phone Jaci Roy APN, aerodynamicist Provider + Social History Tobacco Use Types [...] age to complete this topic Insurance MEDICARE [facility] Care Teams Burn Crew Member Relationship Specialty Start Date End Date Jaci Roy APN, RN [address] [place], [place] [id number] PCP - General Nurse Practitioner Family 09/27/21
--- OUTSIDE RECORDS SUMMARY | 2025-10-26 16:50 | XMS_ITS | Patient Health Record ---
Author Organization [facility] Address [address] [place], [place] [address] Care Team Providers Care Television Newscast Director Name Role Phone Isiah Irving Unavailable Unavailable Reason For Referral No Information Medications Medication SIG (Take, Route, Frequency, Duration) Notes Start Date End Date Status ticagrelor 90 MG Oral Tablet [Brilinta] ORAL ticagrelor 90 MG Oral Tablet [Brilinta]Original Medicationticagrelor 90 MG Oral Tablet [Brilinta] *Reorder from [employer] for eRx and Interaction Alerts* 020 Active calcium carbonate 648 MG Oral Tablet ORAL calcium carbonate 648 MG Ora l TabletOriginal Medicationcalcium carbonate 648 MG Oral Tablet *Reorder from [employer] for eRx and Interaction Alerts* 020 Active folic acid 0.4 MG / vitamin B12 0.5 MG Oral Tablet ORAL folic acid 0.4 MG / vitamin B12 0.5 MG Oral TabletOriginal Medicationfolic acid 0.4 MG / vitamin B12 0.5 MG Oral Tablet *Reorder from [employer] for eRx and Interaction Alerts* 020 Active oxyBUTYnin Chloride 5 MG Oral Tablet ORAL oxybutynin chloride 5 MG Ora l TabletOriginal Medicationoxybutynin chloride 5 MG Oral Tablet *Reorder from [employer] for eRx and Interaction Alerts* 020 Active aspirin 81 MG Delayed Release Oral Tablet ORAL aspirin 81 MG Delayed Releas e Oral TabletOriginal Medicationaspirin 81 MG Delayed Release Oral Tablet *Reorder from [employer] for eRx and Interaction Alerts* 020 Active methylPREDNISolone 4 MG Oral Tablet ORAL methylprednisolone 4 MG Oral TabletOriginal Medicationmethylprednisolone 4 MG Oral Tablet *Reorder from [employer] for eRx and Interaction Alerts* 020 Active ubidecarenone 75 MG Oral Capsule ORAL ubidecarenone 75 MG Oral CapsuleOriginal Medicationubidecarenone 75 MG Oral Capsule *Reorder from [employer] for eRx and Interaction Alerts* 020 Active Social History Social History Additional Details Category Social Info Options Details Migrated Social History Migrated Social History Smoking Status : Never used tobacco , Alcohol intake : , History of tobacco use : Plan Of Treatment No Information Insurance Providers Payer Name Payer Address Payer Phone Subscriber Number Group Number Insured Name Patient Relationship to Insured Coverage Start Date Coverage End Date Medicare Part B [place] [address] [place] [address] [id number] KATHE GOEL Self - patient is the insured [facility] [address] [address] [place] [address] [id number] KATHE GOEL Self - patient is the insured
--- OUTSIDE RECORDS SUMMARY | 2025-10-26 16:50 | XMS_ITS ---
Author Organization [facility] [address] Address [address] [place] [address] Care Team Providers Care Patent Law Specialist Name Role Phone Isiah Irving MD Primary Care Provide r Pancho Hart MD Unavailable [phone] Jaci Hodge MD Unavailable [phone] Florence Macdonald Unavailable Unavailable Active Problems Problem [...] infarction 02/16/2020 Coronary artery disease invo [place]ving [place] coronary artery of [place] heart 11/09/2019 S/P coronary artery stent placement [...]
--- OUTSIDE RECORDS SUMMARY | 2025-10-26 16:50 | XMS_ITS | Encounter Summary ---
Author Organization [facility] Address [address] [facility] [address] [place] [address] Care Team Providers Care Waterside Worker Name Role Phone Daron Zaldivar MD Primary Care Provider Isiah Irving MD Primary Care Provide r Mago Santizo RN Unavailable [phone] Pancho Hart MD Unavailable [phone] Jaci Hodge MD Unavailable [phone] Florence Macdonald Unavailable Unavailable Encounter Details Date Type Department Care Team (Late st Contact Info) Description 03/04/2017 Orders Only [facility] ProviderEmre MD [address] [place] [address] Social History Tobacco Use Types Packs/Day Years Used Date Smoking Tobacco: Never Assessed Comments Unknown Sex and Gender Information Value Date Recorded Sex Assigned at Not on file Legal Sex 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 Gender Identity Not on file Sexual Orientation [...] on filedocumented in this encounter Care Teams Waterside Worker Relationship Specialty Start Date End Date Daron Zaldivar MD [address] [place] [address] PCP - General 03/11/17 04/13/18 Isiah Irving MD [address] [place] [address] PCP - General Family Medicine 04/14/18 Mago Santizo RN [address] [facility] [address] [place] [address] [facility] Outpatient Endocrinology Specialist 12/02/23 12/26/23 Pancho Hart MD [phone] [place], [place] [id number] Surgeon Colon and Rectal Surgery 12/18/23 Jaci Hodge MD [address] [facility] [address] [place], [place] [id number] Consulting Physician Cardiology 09/30/24 Florence Macdonald Primary Landscape Manager 07/29/25 documented as of this encounter
== END 2025-10-26 14:18 | disposition home or self-care (01) ==
LOC: CHSIMG 14:21
PROVIDERS: PCP Family Medicine
DX: I50.42 Chronic combined systolic (congestive) and diastolic (congestive) heart failure (principal); I51.7 Cardiomegaly; I35.8 Other nonrheumatic aortic valve disorders
CPT/HCPCS: 93308; C8924